=== PATIENT | male | born 1960 | race Caucasian/White ===

== ENCOUNTER 2018-08-29 07:47 | Inpatient (IN) | payer SELFPAY ==
[2018-08-29] MEDS ORDERED: ALBUTEROL SO4 2.5/IPRATROPIUM 0.5 INH SOL 3 ML VIAL.NEB. NEB ONE ×3 (08:10→11:21)
--- NOTE | 2018-08-29 08:15 | PDOC ---
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 Pt states while taking a hot shower with steam this am his SOB worsened causing him to feel as though he could not breath. Pt received steroids and 1 duo neb treatment while in the ambulance with subjective improvement in breathing and reported to be saturating in the low 90s. Pt denies past hx of difficulty breathing, wheezing, O2 requirement or hospitalization. Pt admits to a productive cough over the last month which has worsened over the last 3 days with brownish color sputum. Denies F/C/N/V CP, changes in bowel or bladder habits. Past History - Past Medical History Allergies/Adverse Reactions: Allergies Allergy/AdvReac Type Severity Reaction Status Date / Time No Known Allergies Allergy Verified 08/29/18 08:47 Home Medications: Ambulatory Orders NK [No Known Home Medication] 08/29/18 COPD: No CHF: No - Suicide/Smoking/Psychosocial Hx Smoking History: Never smoked Have you smoked in the past 12 months: No Information on smoking cessation initiated: No Hx Alcohol Use: No Drug/Substance Use Hx: No Review of Systems - Review of Systems Constitutional: No: Chills, Fever Respiratory: Yes: Shortness of Breath, Wheezing, Productive cough Cardiac (ROS): No: Chest Pain, Edema ABD/GI: Yes: Other. No: Constipated, Diarrhea, Nausea, Vomiting : No: Burning, Dysuria Musculoskeletal: No: Back Pain Neurological: No: Headache *Physical Exam - Vital Signs Last Vital Signs Temp Pulse Resp BP Pulse Ox 98.4 F 110 H 16 104/92 99 08/29/18 07:47 08/29/18 07:47 08/29/18 07:47 08/29/18 07:47 08/29/18 07:47 - Physical Exam General Appearance: Yes: Nourished, Appropriately Dressed HEENT: positive: EOMI Respiratory/Chest: positive: Wheezing (expratory ). negative: Lungs Clear, Crackles Cardiovascular: positive: Regular Rhythm, S1, S2, Tachycardia. negative: Edema , JVD, Murmur Vascular Pulses: Dorsalis-Pedis (R): 4+, Doralis-Pedis (L): 4+ Gastrointestinal/Abdominal: positive: Normal Bowel Sounds, Flat, Soft, Tenderness (epigastric). negative: Distended, Guarding, Rebound Extremity: positive: Normal Capillary Refill Integumentary: positive: Normal Color, Dry, Warm Neurologic: positive: Fully Oriented, Alert, Normal Mood/Affect, Normal Response Moderate Sedation - Procedure Monitoring Vital Signs: Procedure Monitoring Vital Signs Temperature 98.4 F 08/29/18 07:47 Pulse Rate 110 H 08/29/18 07:47 Respiratory Rate 16 08/29/18 07:47 Blood Pressure 104/92 08/29/18 07:47 O2 Sat by Pulse Oximetry (%) 99 08/29/18 07:47 ED Treatment Course - LABORATORY CBC & Chemistry Diagram: 08/29/18 08:46 08/29/18 08:46 - RADIOLOGY Radiology Studies Ordered: Category Date Time Status CHEST PA & LAT [RAD] Stat Radiology 08/29/18 08:09 Ordered Medical Decision Making - Medical Decision Making 08/29/18 09:01 58 yo male with 30 pack year smoking hx presents to the ED for 3 days of worsening SOB. No hx of O2 requirement or hospitalizations. Pt does not have PCP and no insurance O2 saturation in the ambulance low 90s, pt requiring 2L 02 to be above 92% received steroids and total of 3 duo nebs, subjective improvement DDX includes but is not limited to: PNA, bronchitis, URI, Labs show WBC 13s K of 3.3 CXR shows coarse lungs with nodule. CT ordered r/o PNA and assess possible nodule further Pt has mild improvement in the ED but continues to have diffuse exp wheezing Spoke with hospitalist who agrees to admit pt *DC/Admit/Observation/Transfer Diagnosis at time of Disposition: Shortness of breath - Discharge Dispostion Condition at time of disposition: Stable Decision to Admit order: Yes - Referrals - Patient Instructions - Post Discharge Activity
[2018-08-29 09:23] LABS: BASO % 0.2 % (0-2.0); HEMATOCRIT 42.4 % (35.4-49); HEMOGLOBIN 15.1 GM/dL (11.7-16.9); LYMPH % 5.8 % (8-40); MCH 29.9 pg (25.7-33.7); MCHC 35.6 g/dl (32.0-35.9); MEAN PLT VOLUME 8.7 fl (7.5-11.1); MONO % 3.3 % (3.8-10.2); NEUT % 90.7 % (42.8-82.8); PLATELET COUNT 133 K/MM3 (134-434); RBC 5.05 M/mm3 (4.00-5.60); RDW 13.7 % (11.9-15.9); WHITE BLOOD COUNT 13.5 K/mm3 (4.0-10.0)
[2018-08-29 09:58] LABS: ALBUMIN 3.9 g/dl (3.4-5.0); ALK PHOS 72 U/L (45-117); ANION GAP 10 MMOL/L (8-16); BILIRUBIN,TOTAL 0.7 mg/dL (0.2-1); BLOOD UREA NITROGEN 15 mg/dL (7-18); CALCIUM 8.7 mg/dL (8.5-10.1); CHLORIDE 100 mmol/L (98-107); CO2 26 mmol/L (21-32); CREATININE 0.8 mg/dL (0.55-1.3); GLUCOSE,RANDOM 117 mg/dL (74-106); POTASSIUM 3.3 mmol/L (3.5-5.1); SGOT/AST 18 U/L (15-37); SGPT/ALT 24 U/L (13-61); SODIUM 135 mmol/L (136-145); TOT PROT 7.6 g/dl (6.4-8.2)
[2018-08-29] MEDS ORDERED: POTASSIUM CHLORIDE TABS 20 MEQ TABLET.ER (FP) PO ONE (12:06)
--- NOTE | 2018-08-29 12:10 | PDOC ---
Attending Attestation - Resident Resident Name: Emile Andrew - ED Attending Attestation I have performed the following: I have examined & evaluated the patient, The case was reviewed & discussed with the resident, I agree w/resident's findings & plan, Exceptions are as noted - HPI HPI: 08/29/18 17:38 The patient is a 58-year-old male with a past medical history notable for untreated Hepatitis C, long time smoker presents to the emergency department via EMS with a cough, shortness of breath and epigastric pain. The patient presents with one month of a productive cough with brownish sputum production, associated with 3 days of worsening shortness of breath and epigastric pain. The patient reports mild relief en route to the ER, where he was given steroids and 1 duoneb. Per EMS, pt was hypoxic to 90%. Denies fever, chills, chest pain, urinary symptoms or changes in bowel habits. Denies focal weakness/numbness, weight loss. Allergies: NKDA Social history: Current smoker. PCP: None reported. - Physicial Exam PE: 08/29/18 12:15 agree with resident exam - Medical Decision Making 08/29/18 10:16 58yo M hx 30yo smoking, HCV presents to the ED with progressive SOB, cough. Pt hypoxic to 90% in the field, tachycardic on arrival to 110 (after duoneb). Exam with diffuse wheezing, prolonged exp phase. Likely undiagnosed COPD (pt non compliant with medical care). Less likely PE as no risk factors, no chest pain and with wheezing, COPD more likely. Unlikely ACS as EKG non ischemic. Pt is uninsured and does not have PMD. 08/29/18 12:36 CXR with possible nodule? CT chest done which shows possible bronchitis vs viral infiltrate, no nodules or masses Pt continues to have wheezing, feels improved but still SOB. Case discussed with admitting team by Dr. Andrew for further mgmt/dispo Pt accepted for admission.
[2018-08-29] MEDS: HEPARIN NA (PORCINE) 5,000 UNITS/ML 1ML VIAL SQ SCH ×2 (14:26→21:10)
--- NOTE | 2018-08-29 15:03 | PN ---
Teaching Attending Note Name of Resident: Carolyn Wilkerson ATTENDING PHYSICIAN STATEMENT I saw and evaluated the patient. I reviewed the resident's note and discussed the case with the resident. I agree with the resident's findings and plan as documented. SUBJECTIVE: Patient is a 58yo male presented wit shortness of breath and was found to have 90% sat. in the field. OBJECTIVE: Vital Signs Temperature 97.8 F 08/29/18 14:15 Pulse Rate 86 08/29/18 14:15 Respiratory Rate 16 08/29/18 14:15 Blood Pressure 130/71 08/29/18 14:15 O2 Sat by Pulse Oximetry (%) 92 L 08/29/18 14:15 Initial Vital Signs Temp Pulse Resp BP Pulse Ox 98.4 F 110 H 16 104/92 99 08/29/18 07:47 08/29/18 07:47 08/29/18 07:47 08/29/18 07:47 08/29/18 07:47 GENERAL: Awake, alert, and fully oriented, in no acute distress. HEAD: Normal with no signs of trauma. EYES: Pupils equal, round and reactive to light, extraocular movements intact, sclera anicteric, conjunctiva clear. No lid lag. EARS, NOSE, THROAT: Ears normal, nares patent, oropharynx clear without exudates. Moist mucous membranes. NECK: Normal range of motion, supple without lymphadenopathy, JVD, or masses. LUNGS: Breath sounds equal, clear to auscultation bilaterally. No wheezes, and no crackles. No accessory muscle use. HEART: Regular rate and rhythm, normal S1 and S2 without murmur, rub or gallop. ABDOMEN: Soft, nontender, not distended, normoactive bowel sounds, no guarding, no rebound, no masses. No hepatomegaly or splenomegaly. MUSCULOSKELETAL: Normal range of motion at all joints. No bony deformities or tenderness. No CVA tenderness. EXTREMITIES: 2+ pulses, warm, well-perfused. No cyanosis. No clubbing. No peripheral edema. NEUROLOGICAL: Cranial nerves II-XII intact. Normal speech. Normal gait. PSYCHIATRIC: Cooperative. Good eye contact. Appropriate mood and affect. SKIN: Warm, dry, normal turgor, no rashes or lesions noted, normal capillary refill. CBCD WBC 13.5 K/mm3 (4.0-10.0) H 08/29/18 08:46 RBC 5.05 M/mm3 (4.00-5.60) 08/29/18 08:46 Hgb 15.1 GM/dL (11.7-16.9) 08/29/18 08:46 Hct 42.4 % (35.4-49) 08/29/18 08:46 MCV 84.0 fl (80-96) 08/29/18 08:46 MCHC 35.6 g/dl (32.0-35.9) 08/29/18 08:46 RDW 13.7 % (11.9-15.9) 08/29/18 08:46 Plt Count 133 K/MM3 (134-434) L 08/29/18 08:46 MPV 8.7 fl (7.5-11.1) 08/29/18 08:46 CMP Sodium 135 mmol/L (136-145) L 08/29/18 08:46 Potassium 3.3 mmol/L (3.5-5.1) L 08/29/18 08:46 Chloride 100 mmol/L (98-107) 08/29/18 08:46 Carbon Dioxide 26 mmol/L (21-32) 08/29/18 08:46 Anion Gap 10 MMOL/L (8-16) 08/29/18 08:46 BUN 15 mg/dL (7-18) 08/29/18 08:46 Creatinine 0.8 mg/dL (0.55-1.3) 08/29/18 08:46 Creat Clearance w eGFR > 60 (>60) 08/29/18 08:46 Random Glucose 117 mg/dL (74-106) H 08/29/18 08:46 Calcium 8.7 mg/dL (8.5-10.1) 08/29/18 08:46 Total Bilirubin 0.7 mg/dL (0.2-1) 08/29/18 08:46 AST 18 U/L (15-37) 08/29/18 08:46 ALT 24 U/L (13-61) 08/29/18 08:46 Alkaline Phosphatase 72 U/L (45-117) 08/29/18 08:46 Total Protein 7.6 g/dl (6.4-8.2) 08/29/18 08:46 Albumin 3.9 g/dl (3.4-5.0) 08/29/18 08:46 CARDIAC ENZYMES Troponin I < 0.02 ng/ml (0.00-0.05) 08/29/18 08:46 Current Medications Generic Name Dose Route Start Last Admin Trade Name Freq PRN Reason Stop Dose Admin Albuterol Sulfate 1 amp 08/29/18 16:00 Ventolin 0.083% Nebulizer Soln - NEB RQID HERMINIO Heparin Sodium (Porcine) 5,000 unit 08/29/18 14:00 08/29/18 14:26 Heparin - SQ Not Given TID [facility] CXR: Coarse lung changes. Questionable nodular density by anterior R first rib margin. CT chest: Suggestive of early acute bronchitis or possibly early viral type infiltration. No segmental infiltrate. No discrete lung nodules identified which would correspond with CXR finding. Doppler study: pending ASSESSMENT AND PLAN: The patient is a 58yo Male with Pmhx of smoking, HCV ( untreated) presents to the ED with progressive SOB, cough. Pt was found to be hypoxic (90%) in the field, tachycardic on arrival to 110 (after duoneb). Patient was admitted for COPD exacerbation since patient is an smoker for 30yrs and still smoking. #Acute Bronchitis with shortness of breath; # Acute COPD exacerbation ; Duonebs QID ,Ventolin QID PRN, Solumedrol 40 mg IVP Q6H, O2 2L NC Echo pending. #Hypokalemia; K 3.3, replete #Chronic tobacco dependency: Nicotine patch #DVT Prophylaxis: Heparin 5000U SQ TID admit to med-surg obs full code
--- NOTE | 2018-08-29 15:11 | HP ---
CHIEF COMPLAINT: shortness of breath PCP: none HISTORY OF PRESENT ILLNESS: 58M w/ pmhx of untreated Hep C presents to the hospital with 3 day hx of worsening sob. He states his became acutely sob today while taking a steam shower this AM. He also reports a 1 month h/o productive cough with brown sputum. He denies any sick contacts. Of note, pt states he smokes 1/2 PPD currently. 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 Admits to headache x4 days after which he took ~12 tablets of Advil with no symptomatic relief after which he started having epigastric pain. Denies dizziness, n/v, urinary/ bowel symptoms, blood in urine/stool. ER course was notable for: (1) WBC 13.5, H/H 15.1/42.4, Na 135, K 3.3 (2) CXR showed coarse lung changes; CT chest showed possible acute bronchitis or early viral infiltrate (3) Recent Travel: Denies PAST MEDICAL HISTORY: untreated Hep C chronic smoker PAST SURGICAL HISTORY: R hand surgery R knee surgery (2/2 complicated skin infection in 2017) Social History: Smokin pack year history Alcohol: social drinker Drugs: Denies Family History: Mother- breast cancer, at 52 Sister- breast cancer, alive Father- liver, lung, brain cancer Allergies No Known Allergies Allergy (Verified 08/29/18 08:47) HOME MEDICATIONS: Home Medications Medication Instructions Recorded NK [No Known Home Medication] 08/29/18 REVIEW OF SYSTEMS CONSTITUTIONAL: Admits to generalized weakness in legs; Denies fever/chills, loss of appetite, weight changes HEENT: Denies throat pain, throat swelling, difficulty swallowing, visual changes CARDIOVASCULAR: Denies chest pain, syncope, palpitations, irregular heart rate, lightheadedness RESPIRATORY: Admits to cough, sob, orthopnea (sleeps with 5 pillows) GASTROINTESTINAL: Denies abdominal pain/distension, n/v, diarrhea, constipation GENITOURINARY: Denies dysuria, frequency, urgency, hesitancy, hematuria MUSCULOSKELETAL: Admits to chronic back pain; Denies joint swelling, neck pain ENDOCRINE: Denies unexplained weight gain, unexplained weight loss NEUROLOGIC: Admits to headache; Denies focal weakness or paresthesias, dizziness , unsteady gait, seizure, mental status changes PHYSICAL EXAMINATION Vital Signs - 24 hr 08/29/18 08/29/18 07:47 14:15 Temperature 98.4 F 97.8 F Pulse Rate 110 H Pulse Rate [ 86 Left Apical] Respiratory 16 16 Rate Blood Pressure 104/92 Blood Pressure 130/71 [Left Arm] O2 Sat by Pulse 99 92 L Oximetry (%) GENERAL: AAOx3. NAD. Comfortable. HEENT: AT/NC. EOMI. VIOLETA. Moist mucus membranes. NECK: Supple. No LAD/JVD. LUNGS: B/L wheezes noted. Symmetric chest rise. No accessory muscle use noted. Speak in complete sentences. HEART: RRR. Normal S1, S2. No murmurs noted. ABDOMEN: Soft, NT/ND. +BS in all 4Qs. No masses or bruits noted. MUSCULOSKELETAL: 5/5 muscle strength in U/L B/L extremities. No peripheral edema noted. NEUROLOGICAL: Cranial nerves II-XII intact. Normal speech. SKIN: Warm, dry, normal turgor, no rashes or lesions noted, normal capillary refill. Laboratory Results - last 24 hr 08/29/18 08/29/18 08:46 08:46 WBC 13.5 H RBC 5.05 Hgb 15.1 Hct 42.4 MCV 84.0 MCH 29.9 MCHC 35.6 RDW 13.7 Plt Count 133 L MPV 8.7 Absolute Neuts (auto) 12.3 H Neutrophils % 90.7 H Lymphocytes % 5.8 L Monocytes % 3.3 L Eosinophils % 0.0 Basophils % 0.2 Nucleated RBC % 0 Sodium 135 L Potassium 3.3 L Chloride 100 Carbon Dioxide 26 Anion Gap 10 BUN 15 Creatinine 0.8 Creat Clearance w eGFR > 60 Random Glucose 117 H Calcium 8.7 Total Bilirubin 0.7 AST 18 ALT 24 Alkaline Phosphatase 72 Troponin I < 0.02 Total Protein 7.6 Albumin 3.9 IMAGING: * CXR: Coarse lung changes. Questionable nodular density by anterior R first rib margin. * CT chest: Suggestive of early acute bronchitis or possibly early viral type infiltration. No segmental infiltrate. No discrete lung nodules identified which would correspond with CXR finding. * Doppler study: pending ASSESSMENT/PLAN: 58M w/ pmhx of untreated Hep C presents to the hospital with 3 day hx of worsening sob admitted for likely COPD, ddx includes acute bronchitis vs viral URI. #Shortness of breath; 2/2 COPD vs. acute bronchitis vs viral URI -Duonebs QID -Ventolin QID PRN -Solumedrol 40 mg IVP Q6H -O2 2L NC -Sputum cx pending #LE edema; r/o CHF, although b/l wheezes heard on lung exam -Echo ordered #Hypokalemia; K 3.3 -KCl 40 meq given once -Cont to monitor K #Chronic tobacco user -Nicotine patch #Prophylaxis -DVT: Heparin 5000U SQ TID #FEN -no IVf needed -recheck lytes in AM -Regular diet dispo -admit to med-surg obs -full code Visit type - Emergency Visit Emergency Visit: Yes ED Registration Date: 08/29/18 Care time: The patient presented to the Emergency Department on the above date and was hospitalized for further evaluation of their emergent condition. - New Patient This patient is new to me today: Yes Date on this admission: 08/29/18 - Critical Care Critical Care patient: No
[2018-08-29 15:37] VITALS: BMI 24.4
[2018-08-29] MEDS ORDERED: ALBUTEROL SO4 0.083% IH SOL 2.5 MG/3 ML VIAL.NEB. NEB SCH (16:00)
[2018-08-29] MEDS: NICOTINE 21 MG/24 HOURS TOPICAL PATCH TD SCH (17:15)
[2018-08-29] MEDS ORDERED: ALBUTEROL SO4 0.083% IH SOL 2.5 MG/3 ML VIAL.NEB. NEB PRN (18:48)
[2018-08-29] MEDS: ALBUTEROL SO4 2.5/IPRATROPIUM 0.5 INH SOL 3 ML VIAL.NEB. NEB SCH (20:04)
[2018-08-29] MEDS: ACETAMINOPHEN 325 MG TABLET (FP) PO PRN (20:49)
[2018-08-29] MEDS: methylPREDNISolone NA SUCC 40 MG/1 ML VIAL IVPUSH SCH (20:49)
[2018-08-30] MEDS: methylPREDNISolone NA SUCC 40 MG/1 ML VIAL IVPUSH SCH ×4 (02:17→20:42)
[2018-08-30] MEDS: HEPARIN NA (PORCINE) 5,000 UNITS/ML 1ML VIAL SQ SCH ×3 (05:14→21:33)
[2018-08-30] MEDS: ALBUTEROL SO4 2.5/IPRATROPIUM 0.5 INH SOL 3 ML VIAL.NEB. NEB SCH ×4 (07:12→21:20)
[2018-08-30 07:41] LABS: BASO % 0.1 % (0-2.0); HEMATOCRIT 45.7 % (35.4-49); HEMOGLOBIN 15.5 GM/dL (11.7-16.9); LYMPH % 4.9 % (8-40); MCH 28.7 pg (25.7-33.7); MEAN CELL VOLUME 84.4 fl (80-96); MEAN PLT VOLUME 8.6 fl (7.5-11.1); MONO % 3.2 % (3.8-10.2); NEUT % 91.8 % (42.8-82.8); PLATELET COUNT 171 K/MM3 (134-434); RBC 5.42 M/mm3 (4.00-5.60); RDW 13.6 % (11.9-15.9); WHITE BLOOD COUNT 14.6 K/mm3 (4.0-10.0)
[2018-08-30 07:44] LABS: ALBUMIN 3.9 g/dl (3.4-5.0); ALK PHOS 74 U/L (45-117); ANION GAP 6 MMOL/L (8-16); BILIRUBIN,TOTAL 0.5 mg/dL (0.2-1); BLOOD UREA NITROGEN 17 mg/dL (7-18); CALCIUM 9.4 mg/dL (8.5-10.1); CHLORIDE 103 mmol/L (98-107); CO2 29 mmol/L (21-32); CREATININE 0.8 mg/dL (0.55-1.3); GLUCOSE,RANDOM 131 mg/dL (74-106); MAGNESIUM 2.6 mg/dL (1.8-2.4); PHOSPHOROUS 2.3 mg/dL (2.5-4.9); POTASSIUM 4.3 mmol/L (3.5-5.1); SGOT/AST 18 U/L (15-37); SGPT/ALT 25 U/L (13-61); SODIUM 138 mmol/L (136-145); TOT PROT 7.7 g/dl (6.4-8.2)
[2018-08-30] MEDS: NICOTINE 21 MG/24 HOURS TOPICAL PATCH TD SCH (09:29)
[2018-08-30] MEDS: ACETAMINOPHEN 325 MG TABLET (FP) PO PRN (09:29)
[2018-08-30 10:41] LABS: ACANTHOCYTES 0; ANISOCYTOSIS 0; HELMET CELLS 0; HOWELL-JOLLY BODIES 0; MACROCYTOSIS 0; OVALOCYTE 0; PLATELET ESTIMATE NORMAL; ROULEAU 0; SICKELED CELLS 0; TARGET CELLS 0; TEAR DROP CELLS 0; TOXIC GRANULATION 0
--- NOTE | 2018-08-30 10:47 | PN ---
Physical Exam: SUBJECTIVE: Patient seen and examined at bedside. Pt complaints that he could not sleep last night. OBJECTIVE: Vital Signs Period Temp Pulse Resp BP Sys/Jernigan Pulse Ox Last 24 Hr 97.6 F-97.9 F 86-99 16-20 130-157/71-92 92-97 GENERAL: AAOx3. NAD. Comfortable. HEENT: AT/NC. EOMI. VIOLETA. Moist mucus membranes. NECK: Supple. No LAD/JVD. LUNGS: Diffuse expiratory wheezes b/l. Symmetric chest rise. No accessory muscle use noted. Speaks in complete sentences. HEART: RRR. Normal S1, S2. No murmurs noted. ABDOMEN: Soft, NT/ND. +BS in all 4Qs. No masses or bruits noted. MUSCULOSKELETAL: 5/5 muscle strength in U/L B/L extremities. 2+ peripheral edema noted b/l LE. NEUROLOGICAL: Cranial nerves II-XII intact. Normal speech. SKIN: Warm, dry, normal turgor, no rashes or lesions noted, normal capillary refill. CBCD WBC 14.6 K/mm3 (4.0-10.0) H 08/30/18 06:10 RBC 5.42 M/mm3 (4.00-5.60) 08/30/18 06:10 Hgb 15.5 GM/dL (11.7-16.9) 08/30/18 06:10 Hct 45.7 % (35.4-49) 08/30/18 06:10 MCV 84.4 fl (80-96) 08/30/18 06:10 MCHC 34.0 g/dl (32.0-35.9) 08/30/18 06:10 RDW 13.6 % (11.9-15.9) 08/30/18 06:10 Plt Count 171 K/MM3 (134-434) D 08/30/18 06:10 MPV 8.6 fl (7.5-11.1) 08/30/18 06:10 CMP Sodium 138 mmol/L (136-145) 08/30/18 06:10 Potassium 4.3 mmol/L (3.5-5.1) 08/30/18 06:10 Chloride 103 mmol/L (98-107) 08/30/18 06:10 Carbon Dioxide 29 mmol/L (21-32) 08/30/18 06:10 Anion Gap 6 MMOL/L (8-16) L 08/30/18 06:10 BUN 17 mg/dL (7-18) 08/30/18 06:10 Creatinine 0.8 mg/dL (0.55-1.3) 08/30/18 06:10 Creat Clearance w eGFR > 60 (>60) 08/30/18 06:10 Calcium 9.4 mg/dL (8.5-10.1) 08/30/18 06:10 Total Bilirubin 0.5 mg/dL (0.2-1) 08/30/18 06:10 AST 18 U/L (15-37) 08/30/18 06:10 ALT 25 U/L (13-61) 08/30/18 06:10 Alkaline Phosphatase 74 U/L (45-117) 08/30/18 06:10 Total Protein 7.7 g/dl (6.4-8.2) 08/30/18 06:10 Albumin 3.9 g/dl (3.4-5.0) 08/30/18 06:10 Active Medications Acetaminophen (Tylenol -) 650 mg PO Q6H PRN PRN Reason: HEADACHE Last Admin: 08/30/18 09:29 Dose: 650 mg Albuterol Sulfate (Ventolin 0.083% Nebulizer Soln -) 1 amp NEB Q6H PRN PRN Reason: SHORTNESS OF BREATH Albuterol/Ipratropium (Duoneb -) 1 amp NEB RQID [facility] Last Admin: 08/30/18 07:12 Dose: 1 amp Heparin Sodium (Porcine) (Heparin -) 5,000 unit SQ TID [facility] Last Admin: 08/30/18 05:14 Dose: Not Given Methylprednisolone Sodium Succinate (Solu-Medrol -) 40 mg IVPUSH Q6H-IV [facility] Last Admin: 08/30/18 09:29 Dose: 40 mg Nicotine (Nicoderm Patch -) 21 mg TD DAILY [facility] Last Admin: 08/30/18 09:29 Dose: 21 mg CONSULT: Detox- Dr. Penn IMAGING: * CXR: Coarse lung changes. Questionable nodular density by anterior R first rib margin. * CT chest: Suggestive of early acute bronchitis or possibly early viral type infiltration. No segmental infiltrate. No discrete lung nodules identified which would correspond with CXR finding. * Doppler study: No evidence of DVT * ECHO (08/30/18): LV size, thickness, fxn are normal. LVEF is normal. LV wall motion is normal. There was insufficient TR to calculate RV systolic pressure. Aortic valve is not well visualized. Mild aortic valve thickening. Mild aortic sclerosis. Trace to mild MR. 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 #Shortness of breath; 2/2 COPD vs. acute bronchitis vs viral URI -Duonebs QID -Ventolin QID PRN -Solumedrol 40 mg IVP Q6H -O2 2L NC -Sputum cx pending -Pulm consult ordered; await recs #Abdominal pain; 2/2 recent NSAID use (ingested 12 pills just prior to admission ) vs. GERD vs. inflammation due to acute bronchitis/viral type infiltration found on CT chest -Protonix 40 mg IVP BID -Bentyl 10 mg PO QID x1 day -H/H stable at 15.5/45.7 #Hx of heroine abuse; currently using Suboxone. -Pt just revealed extensive history of heroine abuse, now currently taking Suboxone for the past year. Obtains Suboxone from a friend, non-prescribed. Today, per nurse and family member, pt seen agitated with intense epigastric pain, +vomiting episodes x2, nausea, hallucination. Detox specialist consulted with recommendation to obtain Utox with buprenorphine to test for opioids. If neg, detox with Suboxone per specialist. -Drug cessation counseling. -F/u Utox -Detox MD consult ordered; await further recs #LE edema; r/o CHF, although b/l wheezes heard on lung exam. LE edema 2+ b/l up to knee. -Echo (08/30/18) noted above. #Hypokalemia; Improved, K 3.3 > now 4.3. -Cont to monitor K, replete PRN #Chronic tobacco user -Nicotine patch -Smoking cessation counseling #Prophylaxis -DVT: Heparin 5000U SQ TID #FEN -D5-NS @ 175 -recheck lytes in AM -NPO except for meds/ice chips dispo -cont to monitor on inpt med/surg -full code Visit type - Emergency Visit Emergency Visit: Yes ED Registration Date: 08/30/18 Care time: The patient presented to the Emergency Department on the above date and was hospitalized for further evaluation of their emergent condition. - New Patient This patient is new to me today: No - Critical Care Critical Care patient: No
[2018-08-30] MEDS ORDERED: NAPH,MB-DB/K PH,MBDB POWDER PACKET PO ONE (10:48)
[2018-08-30] MEDS ORDERED: MELATONIN 5 MG TABLETS PO PRN (10:51)
--- NOTE | 2018-08-30 13:02 | ECHO ---
Version: 1 Name: FREDA HILL Exam: Adult Echocardiogram Study Date: 08/30/2018, 10:12 AM Age: 58 Years MMode/2D Measurements & Calculations IVSd: 1.00 cm LVIDs: 2.5 cm LVIDd: 3.8 cm LVPWd: 0.97 cm LVOT diam: 1.96 cm Ao root diam: 2.8 cm LA dimension: 3.0 cm Doppler Measurements & Calculations Med Peak E' Sundar: 5.8 cm/sec Procedure A two-dimensional transthoracic echocardiogram with color flow and Doppler was performed. Left Ventricle The left ventricular size, thickness and function are normal. The left ventricular ejection fraction is normal. The left ventricular wall motion is normal. Right Ventricle The right ventricle is not well visualized. Atria Normal left and right atrial size and function. Mitral Valve There is mild mitral valve thickening. There is no mitral valve stenosis. There is trace to mild lisbeth ral regurgitation. Tricuspid Valve There is mild tricuspid valve thickening. There is no tricuspid stenosis. There was insufficient TR detected to calculate RV systolic pressure. Aortic Valve The aortic valve is not well visualized. There is mild aortic valve thickening. There is mild aortic sclerosis.;. No hemodynamically significant valvular aortic stenosis. No aortic regurgitation is pre sent. Pulmonic Valve The pulmonic valve is not well visualized. Great Vessels The aortic root is normal size. Pericardium/Pleura There is no pericardial effusion. Summary Statements The left ventricular size, thickness and function are normal The left ventricular ejection fraction is normal. The left ventricular wall motion is normal. There was insufficient TR detected to calculate RV systolic pressure. The aortic valve is not well visualized. There is mild aortic valve thickening. There is mild aortic sclerosis.; There is trace to mild mitral regurgitation. MD Saji Rose 08/30/2018, 1:02 PM Ordering Physician: MAL ANN Performed By: Gwendolyn Conte
[2018-08-30] MEDS: PANTOPRAZOLE 40 MG TABLET (FP) PO SCH ×2 (13:52→13:54)
[2018-08-30] MEDS ORDERED: PANTOPRAZOLE SODIUM 40 MG VIAL IVPUSH SCH (14:00)
[2018-08-30] MEDS ORDERED: DEXTROSE 5%-NORMAL SALINE 1,000 ML IV SCH ×2 (14:15→15:13)
[2018-08-30] MEDS ORDERED: PROCHLORPERAZINE INJECTION 10 MG/2 ML VIAL IVPB ONE (14:45)
[2018-08-30] MEDS ORDERED: PANTOPRAZOLE SODIUM 40 MG VIAL IVPUSH ONE (16:31)
[2018-08-30] MEDS ORDERED: DICYCLOMINE HCL 10 MG CAPSULE PO ONE (16:34)
[2018-08-30] MEDS ORDERED: DICYCLOMINE HCL 10 MG CAPSULE PO PRN (16:42)
--- NOTE | 2018-08-30 16:44 | EKG ---
Test Reason : Blood Pressure : / mmHG Vent. Rate : 097 BPM Atrial Rate : 097 BPM P-R Int : 180 ms QRS Dur : 076 ms QT Int : 356 ms P-R-T Axes : 075 -31 068 degrees QTc Int : 452 ms NORMAL SINUS RHYTHM LEFT AXIS DEVIATION INFERIOR INFARCT , AGE UNDETERMINED ABNORMAL ECG WHEN COMPARED WITH ECG OF 05-JUN-2012 08:26, INFERIOR INFARCT IS NOW PRESENT NONSPECIFIC T WAVE ABNORMALITY NO LONGER EVIDENT IN INFERIOR LEADS Confirmed by HENRI SLOAN MD ([id number]) on 08/30/2018 4:44:35 PM Referred By: MAL NAN Confirmed By:HENRI SLOAN MD
--- NOTE | 2018-08-30 16:54 | EKG ---
Test Reason : Blood Pressure : / mmHG Vent. Rate : 107 BPM Atrial Rate : 107 BPM P-R Int : 186 ms QRS Dur : 080 ms QT Int : 336 ms P-R-T Axes : 081 -40 073 degrees QTc Int : 448 ms SINUS TACHYCARDIA WITH FUSION COMPLEXES LEFT AXIS DEVIATION INFERIOR INFARCT , AGE UNDETERMINED ABNORMAL ECG NO PREVIOUS ECGS AVAILABLE Confirmed by HENRI SLOAN MD ([id number]) on 08/30/2018 4:54:15 PM Referred By: Confirmed By:HENRI SLOAN MD
--- NOTE | 2018-08-30 17:35 | PN ---
Teaching Attending Note Name of Resident: Carolyn Wilkerson ATTENDING PHYSICIAN STATEMENT I saw and evaluated the patient. I reviewed the resident's note and discussed the case with the resident. I agree with the resident's findings and plan as documented. SUBJECTIVE: Patient is c/o having mid-epigastric pain. No nausea or vomiting. OBJECTIVE: Vital Signs Temperature 98.4 F 08/30/18 14:50 Pulse Rate 98 H 08/30/18 14:50 Respiratory Rate 21 H 08/30/18 15:00 Blood Pressure 161/100 08/30/18 14:50 O2 Sat by Pulse Oximetry (%) 96 08/30/18 15:00 GENERAL: AAOx3. NAD. Comfortable. HEENT: AT/NC. EOMI. VIOLETA. Moist mucus membranes. NECK: Supple. No LAD/JVD. LUNGS: B/L wheezes noted. otherwise CTABL. HEART: RRR. Normal S1, S2. No murmurs noted. ABDOMEN: Soft, NT/ND. +BS , No masses or bruits noted. MUSCULOSKELETAL: 5/5 muscle strength in U/L B/L extremities. No peripheral edema noted. NEUROLOGICAL: Cranial nerves II-XII intact. Normal speech. SKIN: Warm, dry, normal turgor, no rashes or lesions noted, normal capillary refill. CBCD WBC 14.6 K/mm3 (4.0-10.0) H 08/30/18 06:10 RBC 5.42 M/mm3 (4.00-5.60) 08/30/18 06:10 Hgb 15.5 GM/dL (11.7-16.9) 08/30/18 06:10 Hct 45.7 % (35.4-49) 08/30/18 06:10 MCV 84.4 fl (80-96) 08/30/18 06:10 MCHC 34.0 g/dl (32.0-35.9) 08/30/18 06:10 RDW 13.6 % (11.9-15.9) 08/30/18 06:10 Plt Count 171 K/MM3 (134-434) D 08/30/18 06:10 MPV 8.6 fl (7.5-11.1) 08/30/18 06:10 CMP Sodium 138 mmol/L (136-145) 08/30/18 06:10 Potassium 4.3 mmol/L (3.5-5.1) 08/30/18 06:10 Chloride 103 mmol/L (98-107) 08/30/18 06:10 Carbon Dioxide 29 mmol/L (21-32) 08/30/18 06:10 Anion Gap 6 MMOL/L (8-16) L 08/30/18 06:10 BUN 17 mg/dL (7-18) 08/30/18 06:10 Creatinine 0.8 mg/dL (0.55-1.3) 08/30/18 06:10 Creat Clearance w eGFR > 60 (>60) 08/30/18 06:10 Random Glucose 131 mg/dL (74-106) H 08/30/18 06:10 Calcium 9.4 mg/dL (8.5-10.1) 08/30/18 06:10 Total Bilirubin 0.5 mg/dL (0.2-1) 08/30/18 06:10 AST 18 U/L (15-37) 08/30/18 06:10 ALT 25 U/L (13-61) 08/30/18 06:10 Alkaline Phosphatase 74 U/L (45-117) 08/30/18 06:10 Total Protein 7.7 g/dl (6.4-8.2) 08/30/18 06:10 Albumin 3.9 g/dl (3.4-5.0) 08/30/18 06:10 CARDIAC ENZYMES Troponin I < 0.02 ng/ml (0.00-0.05) 08/29/18 08:46 Current Medications Generic Name Dose Route Start Last Admin Trade Name Alycia PRN Reason Stop Dose Admin Acetaminophen 650 mg 08/29/18 20:32 08/30/18 09:29 Tylenol - PO 650 mg Q6H PRN Administration HEADACHE Albuterol Sulfate 1 amp 08/29/18 18:48 Ventolin 0.083% Nebulizer Soln - NEB Q6H PRN SHORTNESS OF BREATH Albuterol/Ipratropium 1 amp 08/29/18 20:00 08/30/18 17:00 Duoneb - NEB 1 amp RQID HERMINIO Administration Dicyclomine HCl 10 mg 08/30/18 16:42 Bentyl - PO QID PRN MUSCLE SPASMS Heparin Sodium (Porcine) 5,000 unit 08/29/18 14:00 08/30/18 13:51 Heparin - SQ Not Given TID HERMINIO Dextrose/Sodium Chloride 1,000 mls @ 100 mls/hr 08/30/18 15:13 08/30/18 15:57 D5-Ns - IV 100 mls/hr ASDIR HERMINIO Administration Melatonin 5 mg 08/30/18 10:51 Melatonin PO HS PRN INSOMNIA Methylprednisolone Sodium Succinate 40 mg 08/29/18 19:00 08/30/18 14:27 Solu-Medrol - IVPUSH 40 mg Q6H-IV HERMINIO Administration Nicotine 21 mg 08/29/18 16:30 08/30/18 09:29 Nicoderm Patch - TD 21 mg DAILY HERMINIO Administration Pantoprazole Sodium 40 mg 08/30/18 22:00 Protonix Iv IVPUSH 09/02/18 10:01 BID [facility] Home Medications Medication Instructions Recorded Bethanechol Chloride [Bethanechol 50 mg PO QID #0 tablet 06/07/12 Chloride -] Cyclobenzaprine HCl [Flexeril -] 10 mg PO TID #30 tablet 06/07/12 Gabapentin [Neurontin -] 300 mg PO TID #0 capsule 06/07/12 Oxycodone HCl/Acetaminophen 1 - 2 tab PO Q6H #30 tablet 06/07/12 [Percocet 5-325 mg Tablet] Tamsulosin HCl 0.4 mg PO DAILY #0 cap.er.24h 06/07/12 NK [No Known Home Medication] 08/29/18 ASSESSMENT AND PLAN: The patient is a 58yo Male with Pmhx of smoking, HCV ( untreated) presents to the ED with progressive SOB, cough. Pt was found to be hypoxic (90%) in the field, tachycardic on arrival to 110 (after duoneb). Patient was admitted for COPD exacerbation since patient is an smoker for 30yrs and still smoking. #Acute shortness of breath; most likely due to COPD exacerbation. continue current therapy # Acute COPD exacerbation ; Duonebs QID ,Ventolin QID PRN, Solumedrol 40 mg IVP Q6H, O2 2L NC, Echo: Mild TR, ,mild , mild MR. 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 detox consult appreciated. # Midepigastric pain most likely withdrawing, yoni give hime one dose of bentyl IM and place a prn order. #DVT Prophylaxis: Heparin 5000U SQ TID admit to med-surg obs full code
[2018-08-30 18:11] LABS: COCAINE, UR NEGATIVE ng/ml (CUTOFF=300); METHADONE, UR NEGATIVE ng/ml (CUTOFF=300); PHENCYCLIDINE,URINE NEGATIVE ng/ml (CUTOFF=25); URINE AMPHETAMINES NEGATIVE ng/ml (CUTOFF=500); URINE BARBITURATES NEGATIVE ng/ml (CUTOFF=200); URINE BENZODIAZEPINES NEGATIVE ng/ml (CUTOFF=200)
[2018-08-30 18:37] LABS: OPIATES, URI POSITIVE ng/ml (CUTOFF=300)
[2018-08-30] MEDS ORDERED: LORazepam 2 MG/ML SDV VIAL IVPUSH ONE (20:18)
[2018-08-30] MEDS: PANTOPRAZOLE SODIUM 40 MG VIAL IVPUSH SCH (21:33)
[2018-08-31] MEDS: methylPREDNISolone NA SUCC 40 MG/1 ML VIAL IVPUSH SCH ×2 (02:06→09:59)
[2018-08-31] MEDS: HEPARIN NA (PORCINE) 5,000 UNITS/ML 1ML VIAL SQ SCH ×3 (05:06→22:09)
[2018-08-31 07:28] LABS: HEMATOCRIT 42.7 % (35.4-49); HEMOGLOBIN 15.3 GM/dL (11.7-16.9); MCH 30.1 pg (25.7-33.7); MCHC 35.9 g/dl (32.0-35.9); MEAN CELL VOLUME 83.8 fl (80-96); MEAN PLT VOLUME 8.4 fl (7.5-11.1); PLATELET COUNT 228 K/MM3 (134-434); RBC 5.09 M/mm3 (4.00-5.60); RDW 13.6 % (11.9-15.9); WHITE BLOOD COUNT 15.7 K/mm3 (4.0-10.0)
[2018-08-31 07:48] LABS: ANION GAP 7 MMOL/L (8-16); BLOOD UREA NITROGEN 19 mg/dL (7-18); CALCIUM 8.8 mg/dL (8.5-10.1); CHLORIDE 99 mmol/L (98-107); CO2 29 mmol/L (21-32); CREATININE 0.8 mg/dL (0.55-1.3); GLUCOSE,RANDOM 140 mg/dL (74-106); POTASSIUM 3.7 mmol/L (3.5-5.1); SODIUM 136 mmol/L (136-145)
[2018-08-31] MEDS: ALBUTEROL SO4 2.5/IPRATROPIUM 0.5 INH SOL 3 ML VIAL.NEB. NEB SCH ×3 (08:06→20:55)
[2018-08-31] MEDS ORDERED: DEXTROSE 5%-NORMAL SALINE 1,000 ML IV SCH (09:25)
[2018-08-31] MEDS: NICOTINE 21 MG/24 HOURS TOPICAL PATCH TD SCH (10:08)
[2018-08-31] MEDS: PANTOPRAZOLE SODIUM 40 MG VIAL IVPUSH SCH ×2 (10:08→22:08)
[2018-08-31] MEDS ORDERED: methylPREDNISolone NA SUCC 40 MG/1 ML VIAL IVPUSH SCH (11:15)
[2018-08-31] MEDS ORDERED: LORazepam 2 MG/ML SDV VIAL IM PRN (11:16)
[2018-08-31 12:27] LABS: MAGNESIUM 2.2 mg/dL (1.8-2.4); PHOSPHOROUS 3.6 mg/dL (2.5-4.9)
--- NOTE | 2018-08-31 13:32 | PN ---
Physical Exam: SUBJECTIVE: Patient seen and examined OBJECTIVE: Vital Signs Temperature 98.2 F 08/31/18 15:09 Pulse Rate 76 08/31/18 15:09 Respiratory Rate 24 H 08/31/18 15:09 Blood Pressure 156/94 08/31/18 15:09 O2 Sat by Pulse Oximetry (%) 93 L 08/31/18 12:27 GENERAL: AAOx3. NAD. Comfortable. HEENT: AT/NC. EOMI. VIOLETA. Moist mucus membranes. NECK: Supple. No LAD/JVD. LUNGS: Diffuse expiratory wheezes b/l. Symmetric chest rise. No accessory muscle use noted. Speaks in complete sentences. HEART: RRR. Normal S1, S2. No murmurs noted. ABDOMEN: Soft, NT/ND. +BS in all 4Qs. No masses or bruits noted. MUSCULOSKELETAL: 5/5 muscle strength in U/L B/L extremities. 2+ peripheral edema noted b/l LE. NEUROLOGICAL: Cranial nerves II-XII intact. Normal speech. SKIN: Warm, dry, normal turgor, no rashes or lesions noted, normal capillary refill. CBCD WBC 15.7 K/mm3 (4.0-10.0) H 08/31/18 06:30 RBC 5.09 M/mm3 (4.00-5.60) 08/31/18 06:30 Hgb 15.3 GM/dL (11.7-16.9) 08/31/18 06:30 Hct 42.7 % (35.4-49) 08/31/18 06:30 MCV 83.8 fl (80-96) 08/31/18 06:30 MCHC 35.9 g/dl (32.0-35.9) 08/31/18 06:30 RDW 13.6 % (11.9-15.9) 08/31/18 06:30 Plt Count 228 K/MM3 (134-434) D 08/31/18 06:30 MPV 8.4 fl (7.5-11.1) 08/31/18 06:30 CMP Sodium 136 mmol/L (136-145) 08/31/18 06:30 Potassium 3.7 mmol/L (3.5-5.1) 08/31/18 06:30 Chloride 99 mmol/L (98-107) 08/31/18 06:30 Carbon Dioxide 29 mmol/L (21-32) 08/31/18 06:30 Anion Gap 7 MMOL/L (8-16) L 08/31/18 06:30 BUN 19 mg/dL (7-18) H 08/31/18 06:30 Creatinine 0.8 mg/dL (0.55-1.3) 08/31/18 06:30 Creat Clearance w eGFR > 60 (>60) 08/31/18 06:30 Calcium 8.8 mg/dL (8.5-10.1) 08/31/18 06:30 Total Bilirubin 0.5 mg/dL (0.2-1) 08/30/18 06:10 AST 18 U/L (15-37) 08/30/18 06:10 ALT 25 U/L (13-61) 08/30/18 06:10 Alkaline Phosphatase 74 U/L (45-117) 08/30/18 06:10 Total Protein 7.7 g/dl (6.4-8.2) 08/30/18 06:10 Albumin 3.9 g/dl (3.4-5.0) 08/30/18 06:10 Active Medications Acetaminophen (Tylenol -) 650 mg PO Q6H PRN PRN Reason: HEADACHE Last Admin: 08/30/18 09:29 Dose: 650 mg Albuterol Sulfate (Ventolin 0.083% Nebulizer Soln -) 1 amp NEB Q6H PRN PRN Reason: SHORTNESS OF BREATH Albuterol/Ipratropium (Duoneb -) 1 amp NEB RQID [facility] Last Admin: 08/31/18 12:12 Dose: 1 amp Buprenorphine/Naloxone (Suboxone 8mg/2mg Sl Film -) 1 each SL DAILY [facility] Last Admin: 08/31/18 15:10 Dose: 1 each Clonidine (Catapres -) 0.2 mg PO BID [facility] Dicyclomine HCl (Bentyl -) 10 mg PO QID PRN PRN Reason: MUSCLE SPASMS Heparin Sodium (Porcine) (Heparin -) 5,000 unit SQ TID [facility] Last Admin: 08/31/18 15:11 Dose: Not Given Lorazepam (Ativan Injection -) 1 mg IM BID PRN PRN Reason: AGITATION Melatonin (Melatonin) 5 mg PO HS PRN PRN Reason: INSOMNIA Last Admin: 08/30/18 21:33 Dose: 5 mg Nicotine (Nicoderm Patch -) 21 mg TD DAILY [facility] Last Admin: 08/31/18 10:08 Dose: Not Given Pantoprazole Sodium (Protonix Iv) 40 mg IVPUSH BID [facility] Stop: 09/02/18 10:01 Last Admin: 08/31/18 10:08 Dose: 40 mg Prednisone (Deltasone -) 40 mg PO BID [facility] CONSULT: Detox- Dr. Penn IMAGING: * CXR: Coarse lung changes. Questionable nodular density by anterior R first rib margin. * CT chest: Suggestive of early acute bronchitis or possibly early viral type infiltration. No segmental infiltrate. No discrete lung nodules identified which would correspond with CXR finding. * Doppler study: No evidence of DVT * ECHO (08/30/18): LV size, thickness, fxn are normal. LVEF is normal. LV wall motion is normal. There was insufficient TR to calculate RV systolic pressure. Aortic valve is not well visualized. Mild aortic valve thickening. Mild aortic sclerosis. Trace to mild MR. 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 #Shortness of breath; 2/2 COPD vs. acute bronchitis vs viral URI -Duonebs QID -Ventolin QID PRN -Switch Solumedrol 40 mg IVP Q6H to Prednisone 40 mg PO BID -O2 2L NC -Sputum cx pending -Pulm consult; PFTs once stable as outpatient -pre and post ordered #Abdominal pain; 2/2 recent NSAID use (ingested 12 pills just prior to admission ) vs. GERD vs. inflammation due to acute bronchitis/viral type infiltration found on CT chest -Protonix 40 mg IVP BID -Bentyl 10 mg PO QID x1 day -H/H stable at 15.5/45.7 #Hx of heroine abuse; currently using Suboxone. -Pt just revealed extensive history of heroine abuse, now currently taking Suboxone for the past year. Obtains Suboxone from a friend, non-prescribed. Today, per nurse and family member, pt seen agitated with intense epigastric pain, +vomiting episodes x2, nausea, hallucination. Detox specialist consulted with recommendation to obtain Utox with buprenorphine to test for opioids. If neg, detox with Suboxone per specialist. -Drug cessation counseling. -Utox +opiates -Ativan 1 mg IVP BID PRN for agitation -Detox MD, Suboxone 8mg daily started; will need intensive dc planning with IOP drug rehab -Clonidine 0.2 mg PO BID #LE edema; r/o CHF, although b/l wheezes heard on lung exam. LE edema 2+ b/l up to knee. -Echo (08/30/18) noted above. #Hypokalemia; Improved, K 3.3 > now 4.3. -Cont to monitor K, replete PRN #Chronic tobacco user -Nicotine patch -Smoking cessation counseling #Prophylaxis -DVT: Heparin 5000U SQ TID #FEN -no IVf -recheck lytes in AM -NPO except for meds/ice chips dispo -cont to monitor on inpt med/surg -full code Visit type - Emergency Visit Emergency Visit: Yes ED Registration Date: 08/30/18 Care time: The patient presented to the Emergency Department on the above date and was hospitalized for further evaluation of their emergent condition. - New Patient This patient is new to me today: No - Critical Care Critical Care patient: No
--- NOTE | 2018-08-31 14:06 | PN ---
[facility] COWS - Scale Resting Pulse: 1= NC 81-100 Sweatin=Flushed/Facial Moisture Restless Observation: 1= Difficult to Sit Still Pupil Size: 5= Only Rim of Iris Seen Bone or Joint Aches: 1= Mild Discomfort Runny Nose/ Eye Tearin= Runny Nose/Eyes GI Upset > 30mins: 3= Vomiting/Diarrhea Tremor Observation of Outstretched Hands: 2= Slight Tremor Visible Yawning Observation: 1= 1-2x During Session Anxiety or Irritability: 2=Irritable/Anxious Goose Flesh Skin: 0=Smooth Skin COWS Score: 20 [facility] Progress Note (SOAP) Subjective: Addiction Consult Asked to see patient for active opioid withdrawal This is a 58 year old male with a history of heavy tobacco use, fpc opioid use disorder admitted for SOB/"almost passed out." About a day into his hospitalization he went into opioid withdrawal (he had not disclosed his use to anyone) with N/V, anxiety, disorientation, sweating, agitation, anxiety. His COWS is currently 20. Substance Use History Heroin: first use at 14 years old, was IV user now [place] only, last use of heroin this past Tuesday/Tuesday. He has a classic chronic, relapsing and remitting course of substance misuse. The past year he has been buying Suboxone from a friend and using anywhere from 8-24mg a day.With Suboxone his life has gotten much "better." He got a new job, improved relationships, etc. He decided he needed to detox himself off the Suboxone and weaned himself down to 2mg and then off about 2 weeks ago. He is also concerned about drug testing in his new job at [employer] [employer]. He denies use of other substances except the tobacco mentioned above. Treatment History He has an extensive treatment history including greater than 10 inpatient detox , 30d rehab also 10-15 times, [facility] rehab about 5 times. 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 Psych hist: denies any mental health issues Social History: lives with his SO, Maria A, who he has been with since 1989. They live in an apartment. 3 kids. two of his children have DELPHINE. 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 Med hist: COPD? 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 OUD: Re-start Suboxone 8mg a day. Tobacco Use Disorder: Smoking cessation including patch plus short acting gum/ inhaler. CHantix? He needs to have intensive discharge planning including referral to a Suboxone program that is not an [facility] (b/c he works) or a private practitioner who accepts insurance. He is also asking for a referral to see a "therapist". 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 Will follow and reach out to the primary medical team.
[2018-08-31] MEDS: BUPRENORPHINE/NALOXONE 8 MG/2 MG FILM PACKET SL SCH (15:10)
--- NOTE | 2018-08-31 15:36 | CON.PULM ---
Consult Consult Specialty:: PULM/CCM Referred by:: Hospitalist Reason for Consultation:: SOB - History of Present Illness Chief Complaint: SOB History of Present Illness: 58 M, 1/2 to 1 PPD smoker. History of untreated Hep C. Admitted via the ER due to 3 days of worsening SOB, BROOKS, and congested cough. The SOB apparently significantly worsened after he took a steam shower. No travel history or sick contacts. No hemoptysis or night sweats. No outpatient ABX or steroids. Took OTC counter meds for URI symptoms. - History Source History Provided By: Patient Limitations to Obtaining History: No Limitations - Past Medical History Pulmonary: Yes: Bronchitis. No: Previously Intubated, Pulmonary Embolus, Sleep Apnea - Alcohol/Substance Use Hx Alcohol Use: Yes (socially) - Smoking History Smoking history: Current every day smoker Have you smoked in the past 12 months: Yes Aproximately how many cigarettes per day: 20 Home Medications - Allergies Allergies/Adverse Reactions: Allergies Allergy/AdvReac Type Severity Reaction Status Date / Time No Known Allergies Allergy Verified 06/05/12 07:16 - Home Medications Home Medications: Ambulatory Orders Bethanechol Chloride [Bethanechol Chloride -] 50 mg PO QID #0 tablet 06/07/12 Cyclobenzaprine HCl [Flexeril -] 10 mg PO TID #30 tablet 06/07/12 Gabapentin [Neurontin -] 300 mg PO TID #0 capsule 06/07/12 Oxycodone HCl/Acetaminophen [Percocet 5-325 mg Tablet] 1 - 2 tab PO Q6H #30 tablet 06/07/12 Tamsulosin HCl 0.4 mg PO DAILY #0 cap.er.24h 06/07/12 NK [No Known Home Medication] 08/29/18 Review of Systems - Review of Systems Constitutional: reports: Lethargy, Malaise. denies: Chills, Fever, Night Sweats , Unintentional Wgt. Loss Eyes: reports: No Symptoms HENT: reports: No Symptoms Neck: reports: No Symptoms Cardiovascular: reports: Shortness of Breath. denies: Chest Pain, Edema, Palpitations Respiratory: reports: Cough, SOB, SOB on Exertion, Wheezing. denies: Hemoptysis , Snoring Gastrointestinal: reports: No Symptoms Genitourinary: reports: No Symptoms Breasts: reports: No Symptoms Reported Musculoskeletal: reports: No Symptoms Integumentary: reports: No Symptoms Neurological: reports: No Symptoms Endocrine: reports: No Symptoms Hematology/Lymphatic: reports: No Symptoms Psychiatric: reports: No Symptoms Physical Exam Vital Sings: Vital Signs Temperature 98.2 F 08/31/18 15:09 Pulse Rate 76 08/31/18 15:09 Respiratory Rate 24 H 08/31/18 15:09 Blood Pressure 156/94 08/31/18 15:09 O2 Sat by Pulse Oximetry (%) 93 L 08/31/18 12:27 Constitutional: Yes: No Distress, Thin Eyes: Yes: Conjunctiva Clear, EOM Intact HENT: Yes: Atraumatic, Normocephalic Neck: Yes: Supple, Trachea Midline Cardiovascular: Yes: Regular Rate and Rhythm Respiratory: Yes: Cough, Diminished, On Nasal O2, Rhonchi, Tachypnea, Wheezes. No: Rales, Stridor ...Inspection: Yes: WNL ...Clubbing: No Gastrointestinal: Yes: Normal Bowel Sounds, Soft Musculoskeletal: Yes: WNL Extremities: Yes: WNL Edema: No Peripheral Pulses WNL: Yes Integumentary: Yes: WNL Neurological: Yes: WNL, Alert, Oriented Labs: CBC, BMP 08/31/18 06:30 08/31/18 06:30 Imaging - Results Chest X-ray: Report Reviewed, Image Reviewed Cat Scan: Report Reviewed, Image Reviewed Problem List - Problems (1) Acute exacerbation of chronic obstructive airways disease Code(s): J44.1 - CHRONIC OBSTRUCTIVE PULMONARY DISEASE W (ACUTE) EXACERBATION (2) COPD (chronic obstructive pulmonary disease) Code(s): J44.9 - CHRONIC OBSTRUCTIVE PULMONARY DISEASE, UNSPECIFIED (3) Smoker Code(s): F17.200 - NICOTINE DEPENDENCE, UNSPECIFIED, UNCOMPLICATED (4) Shortness of breath Code(s): R06.02 - SHORTNESS OF BREATH Assessment/Plan Agree with Prednisone Would continue to monitor off ABX BD TX On D/C should be on LAMA/LABA O2 as needed No smoking counseled PFTs once stable as an outpatient Detox evaluation noted Will follow Thank you. Dr Caceres
[2018-08-31] MEDS ORDERED: cloNIDine HCL 0.1 MG TABLET PO SCH (15:45)
--- NOTE | 2018-08-31 18:48 | PN ---
Teaching Attending Note Name of Resident: Carolyn Wilkerson ATTENDING PHYSICIAN STATEMENT I saw and evaluated the patient. I reviewed the resident's note and discussed the case with the resident. I agree with the resident's findings and plan as documented. SUBJECTIVE: breathing has improved No fever or chills. no abd pain. no N/V . was agitated lat night OBJECTIVE: NA d CV: RRR Lungs: prolonged exp phase, scattered wheezing. no crackles Ext : no edema abd : soft, NT, ND, NL BS ASSESSMENT AND PLAN: 58 y/o man wiht h/o substance abuse, smoker, treated HCV who presented with SOb and was found to have acute COPD exacerbation 1- Acute COPD exacerbation : imporve d - switch to po prednisone - cont Nebs 2- opioids withdrawal : - d/w Detox MD - placed on suboxone.and plan for suboxone clinic f/u - cont clonidine and PRN benzos for withdrawal sx dispo : medically stable. ? transfer to [facility] tomorrow
[2018-08-31] MEDS: cloNIDine HCL 0.1 MG TABLET PO SCH (22:08)
[2018-08-31] MEDS: predniSONE 20 MG TABLET (UD) PO SCH (22:08)
[2018-09-01] MEDS: HEPARIN NA (PORCINE) 5,000 UNITS/ML 1ML VIAL SQ SCH ×2 (06:40→14:41)
[2018-09-01] MEDS: ALBUTEROL SO4 2.5/IPRATROPIUM 0.5 INH SOL 3 ML VIAL.NEB. NEB SCH ×3 (07:20→15:06)
[2018-09-01 08:07] LABS: HEMATOCRIT 40.7 % (35.4-49); HEMOGLOBIN 13.7 GM/dL (11.7-16.9); MCH 28.7 pg (25.7-33.7); MCHC 33.6 g/dl (32.0-35.9); MEAN CELL VOLUME 85.5 fl (80-96); MEAN PLT VOLUME 7.8 fl (7.5-11.1); PLATELET COUNT 222 K/MM3 (134-434); RBC 4.77 M/mm3 (4.00-5.60); RDW 13.4 % (11.9-15.9); WHITE BLOOD COUNT 9.6 K/mm3 (4.0-10.0)
[2018-09-01 08:39] LABS: ANION GAP 9 MMOL/L (8-16); BLOOD UREA NITROGEN 22 mg/dL (7-18); CALCIUM 8.6 mg/dL (8.5-10.1); CHLORIDE 101 mmol/L (98-107); CO2 27 mmol/L (21-32); GLUCOSE,RANDOM 156 mg/dL (74-106); SODIUM 137 mmol/L (136-145)
[2018-09-01] MEDS: BUPRENORPHINE/NALOXONE 8 MG/2 MG FILM PACKET SL SCH (09:42)
[2018-09-01] MEDS: predniSONE 20 MG TABLET (UD) PO SCH (09:42)
[2018-09-01] MEDS: NICOTINE 21 MG/24 HOURS TOPICAL PATCH TD SCH (09:42)
[2018-09-01] MEDS: PANTOPRAZOLE SODIUM 40 MG VIAL IVPUSH SCH (09:42)
[2018-09-01] MEDS: cloNIDine HCL 0.1 MG TABLET PO SCH (09:43)
--- NOTE | 2018-09-01 12:52 | PN ---
Progress Note (short form) - Note Progress Note: PULMONARY SLATED FOR DISCHARGE TODAY OFFERS NO COMPLAINTS VSS Constitutional: Yes: No Distress, Thin Eyes: Yes: Conjunctiva Clear, EOM Intact HENT: Yes: Atraumatic, Normocephalic Neck: Yes: Supple, Trachea Midline Cardiovascular: Yes: Regular Rate and Rhythm Respiratory: Yes: Cough, Diminished, On Nasal O2, Rhonchi, Tachypnea, Wheezes. No: Rales, Stridor ...Inspection: Yes: WNL ...Clubbing: No Gastrointestinal: Yes: Normal Bowel Sounds, Soft Musculoskeletal: Yes: WNL Extremities: Yes: WNL Edema: No Peripheral Pulses WNL: Yes Integumentary: Yes: WNL Neurological: Yes: WNL, Alert, Oriented Labs: Imaging - Results Chest X-ray: Report Reviewed, Image Reviewed Cat Scan: Report Reviewed, Image Reviewed Problem List - Problems (1) Acute exacerbation of chronic obstructive airways disease Code(s): J44.1 - CHRONIC OBSTRUCTIVE PULMONARY DISEASE W (ACUTE) EXACERBATION (2) COPD (chronic obstructive pulmonary disease) Code(s): J44.9 - CHRONIC OBSTRUCTIVE PULMONARY DISEASE, UNSPECIFIED (3) Smoker Code(s): F17.200 - NICOTINE DEPENDENCE, UNSPECIFIED, UNCOMPLICATED (4) Shortness of breath Code(s): R06.02 - SHORTNESS OF BREATH Assessment/Plan Agree with Prednisone taper as outpatient BD TX On D/C should be on LAMA/LABA No smoking counseled PFTs once stable as an outpatient Detox evaluation noted Will follow Mike MANNING MD
[2018-09-01 14:53] VITALS: BP 129/77; PULSE 82; TEMP 97.3
--- NOTE | 2018-09-01 15:34 | PN ---
Teaching Attending Note Name of Resident: Carolyn Wilkerson ATTENDING PHYSICIAN STATEMENT I saw and evaluated the patient. I reviewed the resident's note and discussed the case with the resident. I agree with the resident's findings and plan as documented. SUBJECTIVE: no fever or chills . No abd pain, n oHA , no diarrhea , no N/V OBJECTIVE: NAd . walking in hallway comfortably CV: RRR Lungs: prolonged exp phase, scattered wheezing. decreased breath sounds at bases Ext : no edema ASSESSMENT AND PLAN: 58 y/o man wiht h/o substance abuse, smoker, treated HCV who presented with SOb and was found to have acute COPD exacerbation 1- Acute COPD exacerbation :improved - cont po predniosne as out pt to fiish a taper. he was instructed not to stop abruptly - cont albuterol inhaler and give symbicort as out pt - f/u with pulm as out pt 2- Opioids withdrawal : - no sx. he made an appointment with suboxne clinic in [place]. Dr. Giles to prescribe suboxone for him . case was d/w her by resident. gertrude wu
--- NOTE | 2018-09-02 13:49 | DS ---
Physical Exam: SUBJECTIVE: Patient seen and examined at bedside. No acute events overnight. OBJECTIVE: Vital Signs Period Temp Pulse Resp BP Sys/Jernigan Pulse Ox Last 24 Hr 97.3 F 82 20 129/77 PHYSICAL EXAM GENERAL: AAOx3. NAD. Comfortable. HEENT: AT/NC. EOMI. VIOLETA. Moist mucus membranes. NECK: Supple. No LAD/JVD. LUNGS: Diffuse expiratory wheezes b/l. Symmetric chest rise. No accessory muscle use noted. Speaks in complete sentences. HEART: RRR. Normal S1, S2. No murmurs noted. ABDOMEN: Soft, NT/ND. +BS in all 4Qs. No masses or bruits noted. MUSCULOSKELETAL: 5/5 muscle strength in U/L B/L extremities. 2+ peripheral edema noted b/l LE. NEUROLOGICAL: Cranial nerves II-XII intact. Normal speech. SKIN: Warm, dry, normal turgor, no rashes or lesions noted, normal capillary refill. LABS HOSPITAL COURSE: Date of Admission:08/30/18 IMAGING: * CXR: Coarse lung changes. Questionable nodular density by anterior R first rib margin. * CT chest: Suggestive of early acute bronchitis or possibly early viral type infiltration. No segmental infiltrate. No discrete lung nodules identified which would correspond with CXR finding. * Doppler study: No evidence of DVT * ECHO (08/30/18): LV size, thickness, fxn are normal. LVEF is normal. LV wall motion is normal. There was insufficient TR to calculate RV systolic pressure. Aortic valve is not well visualized. Mild aortic valve thickening. Mild aortic sclerosis. Trace to mild MR. 58M w/ pmhx of Hep C (previously treated), hx of heroine/Suboxone abuse presents to the hospital with 3 day hx of worsening sob admitted for acute COPD exacerbation. Pt was treated with duonebs, Ventolin, Solumedrol for shortness of breath. CT chest was done that showed early acute bronchitis or possible viral type infiltration. Doppler study was done that showed no evidence of DVT. Upon exam, pt was found to have LE edema and as a result echocardiogram was ordered. Echo was unremarkable. One day 2 of hospital admission, pt started experiencing profuse abdominal pain with nausea and vomiting episodes. Upon evaluation, pt revealed he was a daily (unprescribed) Suboxone user as well as former heroine addict s/p extensive drug rehab on multiple occasions. Detox specialist was consulted. Upon detox MD chávez, pt was subsequently started on Suboxone detox. Additionally, pt was given Bentyl for his abdominal pain. Throughout the duration of his hospital course, pt's symptoms of sob and abdominal pain/vomiting improved markedly, and pt tolerated PO diet. He was discharged home and advised to follow up with his PCP, corn cutter for further evaluation of his lung fxn status, and GI to evaluate GI symptoms. An appointment was made for him to attend the outpatient Suboxone clinic at [facility] for drug rehab. Pt was discharged to home with instructions to take Ventolin, Symbicort, Prednisone, and Suboxone as directed. Date of Discharge: 09/02/18 Minutes to complete discharge: 40 Discharge Summary Reason For Visit: SHORTNESS OF BREATH Condition: Improved - Instructions Diet, Activity, Other Instructions: You came to the hospital for complaints of shortness of breath. In the hospital, you were evaluated and found to have an acute COPD exacerbation with bronchitis as the cause of your symptoms. You were given nebulizer treatments to help with your breathing. Additionally, you were seen by a detox physician to evaluate your Suboxone withdrawal. Throughout your hospital stay, your symptoms improved. You are being discharged home MEDICAL RECOMMENDATIONS Please also take Suboxone 8 mg once a day. It is important that you do not take more than the prescribed dosage. Please take Symbicort 2 puffs a day. Please take Albuterol inhaler as needed. Please take Prednisone with the following tapered dosage: Take Prednisone 40 mg daily x 2 days, then 30 mg daily for 2 days then 20 mg daily x 2 days then 10 mg daily x 2 days then stop. Please start this taper tomorrow, 09/02/18. CONSULT RECOMMENDATIONS Please follow up with your primary care physician within 1 week. If you do not have a primary care physician, you make an appointment at the residency clinic at [facility] with Dr. Wilkerson. The clinic is open Tuesday-Tuesday 9 -5pm. Please follow up with a GI doctor for further evaluation of your gastritis. You may need an endoscopy in the future to assess your abdominal pain. Please follow up with the pulmonary doctor, Dr. Caceres within 1 week. You will need to have pulmonary functions tests done to assess your lung function. Additionally, [place] [address]. The contact number is . You have an intake appointment for September 11, 2018 at the facility. Please make sure you follow up with your appointment for further rehab. If you experience worsening chest pain, shortness of breath, abdominal pain, persistent blood in your stool, mental status changes, worsening withdrawal symptoms due to heroine, please proceed to your nearest emergency room immediately. Referrals: [facility] [place] [Provider Group] - 1 Week Carolyn Wilkerson RES [Resident] - 1 Week Disposition: HOME - Home Medications Comprehensive Discharge Medication List: Ambulatory Orders Albuterol Sulfate Inhaler - [Ventolin HFA Inhaler -] 1 - 2 inh PO QID #1 inhaler 09/01/18 Budesonide/Formeterol Fumarate [SYMBICORT 160/4.5mcg -] 1 inh PO DAILY #1 cannister 09/01/18 predniSONE [Deltasone -] See Taper PO ASDIR #20 tab 09/01/18 Buprenorphine/Naloxone [Suboxone 8Mg/2Mg Sl Film -] 1 each SL DAILY 7 Days #7 packet MDD 8MG 09/02/18 This patient is new to me today: No Emergency Visit: Yes ED Registration Date: 08/30/18 Care time: The patient presented to the Emergency Department on the above date and was hospitalized for further evaluation of their emergent condition. Critical Care patient: No - Discharge Referral Referred to [facility] No
--- NOTE | 2018-09-02 14:35 | PN ---
[facility] Progress Note Note: BELT FIXER CALLED BY DR. Glendy STEVEN TO PROVIDE SUBOXONE PRESCRIPTION FOR PATIENT HE WAS D/C YESTERDAY EVENING AND MD WAS NOT IN FACILITY TO TRANSMIT ORDER. NOTE BY DR. TSEVEN REVIEWED AND DOSE CONFIRMED WITH MD: SUBOXONE 8MG/2MG DAILY. MEDICATION ORDERED AND TRANSMITTED TO [facility], HOWEVER ONLY ONE WEEK WORTH OF FILMS WAS ABLE TO BE ELECTRONICALLY SUBMITTED. DR. STEVEN INFORMED ONE WEEK OF SUBOXONE SENT TO PHARMACY.
== END 2018-09-01 16:21 | disposition home or self-care (01) | DRG 140 ==
LOC: JER 07:47 → MERGE 12:38 → JERBED 12:38 → J5S 15:15 → OBSVTOIN 08-30 15:50
PROVIDERS: ADMIT Internal Medicine; ATTEND Internal Medicine
PROC: HZ2ZZZZ Detoxification Services for Substance Abuse Treatment (ICD-10-PCS; principal; 2018-08-29)
DX: J44.1 Chronic obstructive pulmonary disease with (acute) exacerbation (principal); F11.23 Opioid dependence with withdrawal; J20.9 Acute bronchitis, unspecified; R91.8 Other nonspecific abnormal finding of lung field; B19.20 Unspecified viral hepatitis C without hepatic coma; R09.02 Hypoxemia; R00.0 Tachycardia, unspecified; F17.210 Nicotine dependence, cigarettes, uncomplicated; E87.6 Hypokalemia; J44.0 Chronic obstructive pulmonary disease with (acute) lower respiratory infection; F19.10 Other psychoactive substance abuse, uncomplicated; I70.0 Atherosclerosis of aorta; I50.9 Heart failure, unspecified
CPT/HCPCS: 36415; 71046-TC-FY; 71250-TC; 80048; 80053; 80307; 83735; 84100; 84484; 85025; 85027; 87070; 87205; 93005; 93010; 93306-TC; 93970-TC; 94640; 94761; 99281-25; 99284-25; G0378; J0735

== ENCOUNTER 2019-11-08 12:01 | Emergency (ER) | payer OTHER ==
[2019-11-08 12:09] VITALS: TEMP 98; BMI 32.8
--- NOTE | 2019-11-08 12:34 | PDOC ---
History of Present Illness - General Chief Complaint: Shortness of Breath Stated Complaint: SENT BY DOC Time Seen by Provider: 11/08/19 12:24 Past History - Past Medical History Allergies/Adverse Reactions: Allergies Allergy/AdvReac Type Severity Reaction Status Date / Time No Known Allergies Allergy Verified 11/08/19 12:04 Home Medications: Ambulatory Orders Albuterol Sulfate Inhaler - [Ventolin HFA Inhaler -] 1 - 2 inh PO QID #1 inhaler 09/01/18 Budesonide/Formeterol Fumarate [SYMBICORT 160/4.5mcg -] 1 inh PO DAILY #1 cannister 09/01/18 predniSONE [Deltasone -] See Taper PO ASDIR #20 tab 09/01/18 Buprenorphine/Naloxone [Suboxone 8Mg/2Mg Sl Film -] 1 each SL DAILY 7 Days #7 packet MDD 8MG 09/02/18 Anemia: No Asthma: No Cancer: No Cardiac Disorders: No CVA: No COPD: No CHF: No Dementia: No Diabetes: No Dialysis: No GI Disorders: No Disorders: No HTN: No Hypercholesterolemia: No Kidney Stones: No Liver Disease: Yes (hepatitis C) Seizures: No Thyroid Disease: No - Surgical History Orthopedic Surgery: Yes (right hand) - Psycho Social/Smoking Cessation Hx Smoking Status: Yes Smoking History: Unknown if ever smoked Years of Tobacco Use: 40 Have you smoked in the past 12 months: Yes Number of Cigarettes Smoked Daily: 20 'Breaking Loose' booklet given: 08/29/18 Hx Alcohol Use: No Drug/Substance Use Hx: No Substance Use Type: None Hx Substance Use Treatment: No *Physical Exam - Vital Signs Last Vital Signs Temp Pulse Resp BP Pulse Ox 98 F 69 26 H 172/98 H 95 11/08/19 12:04 11/08/19 12:04 11/08/19 12:04 11/08/19 12:04 11/08/19 12:04 Medical Decision Making - Medical Decision Making 11/08/19 12:43 HPI: 59yo M hx HTN, COPD (baseline O2 sat 97% on RA), sleep apnea, smoking, and methadone presents from outpatient clinic with headache and self-resolved episode of shortness of breath, chest tightness, and hypoxia to 88% s/p phrenic nerve disruption by interscalene nerve block with Naropin 0.5% and Lidocaine 1% prior to L shoulder arthroscopy. Pt c/o diffuse and bitemporal pressure type "stress headache" gradually worsening since event, exactly the same as prior stress headaches when gets frustrated, normally takes advil at home. During anesthesia, pt developed acute onset SOB and substernal chest tightness only with deep breaths, gradually resolving over 30min. Pt denies current SOB, chest pain, cough, palpitations, nausea, vomiting, abdominal pain. Endorses LUE tingling/numbness 2/2 anesthesia injection (told would resolve within 24 hours), gradually going away. Denies other numbness/tingling or weakness. Pt in USOH prior to surgery. Surgery was not done due to event. Surgery at [facility]. Allergies: Tylenol Orthopedic Surgeon: Dr. Salmon PCP: shiela Elliott: Chet ROS: Constitutional: Negative for chills, fever, fatigue, diaphoresis. HENT: Negative for sore throat, rhinorrhea, congestion. Eyes: Negative for visual disturbance. Respiratory: Positive for shortness of breath and hypoxia. Negative for cough, and wheezing. Cardiovascular: Positive for chest tightness. Negative for palpitations, and leg swelling. Gastrointestinal: Negative for abdominal pain, blood in stool, constipation, diarrhea, nausea, and vomiting. Genitourinary: Negative for dysuria, flank pain, and hematuria. Musculoskeletal: Negative for myalgias, back pain, and neck pain. Skin: Negative for rash. Neurological: Positive for numbness/tingling LUE and headache. Negative for li ght-headedness, dizziness, vertigo, syncope, weakness. Psychiatric/Behavioral: Negative for behavioral problems and confusion. PE: Gen: Alert, NAD, frustrated but comfortable-appearing, pacing in room HEENT: PERRL, EOMI, MMM, NCAT. No conjunctival pallor. Sclera are non-icteric. Oropharynx is clear. CV: Regular rate and rhythm. No murmurs, rubs, or gallops. PULM: No resp distress. CTAB, no wheezes, rales, or rhonchi. ABD: soft, NT/ND, no rebound tenderness or guarding, no CVA tenderness. BACK: No TTP of c/t/l-spine. No step-offs or deformities. MSK: No bony deformities. 2+ pulses in all extremities. NEURO: AAOx3. PERRL. CN 2-12 intact. 5/5 strength in all extremities. Sensation to light touch intact in all extremities. No abnormal nystagmus. Normal gait. EXTREMITIES: No cyanosis. No clubbing. No edema. No calf tenderness. +L middle finger partial amputation. PSYCH: Frustrated mood and normal thought pattern. SKIN: Warm and dry. Normal capillary refill. No rashes. No jaundice. MDM: 59yo M hx HTN, COPD (baseline O2 sat 97% on RA), sleep apnea, smoking, and methadone presents from outpatient clinic with headache and self-resolved episode of shortness of breath, chest tightness, and hypoxia s/p phrenic nerve disruption by interscalene nerve block with Naropin 0.5% and Lidocaine 1% prior to L shoulder arthroscopy. O2 sat 95-97%, no respiratory distress, stable pulse, normotensive, afebrile, lungs CTAB. Presentation c/w temporary unilateral diaphragm paralysis 2/2 phrenic nerve disruption by anesthesia, resolved as anesthesia is wearing off. Also consider PTX - r/o with CXR. Low concern for arrhythmia or ACS/WY due to onset during anesthesia and lack of chest pain/N/V/diaphoresis and lack of hx ACS/WY - eval with EKG. Due to onset during anesthesia and gradual improvement since administration, low concern for other pathologies such as PNA, anemia, or metabolic derangement - no indication for labs at this time. Headache c/w tension headaches - ibuprofen and reassess. -CXR -Pain management: Ibuprofen -EKG reviewed: NSR, 62bpm, normal intervals, normal axis, no e/o acute ischemia -POCUS Lungs: lung sliding present b/l -Dispo: pending w/u and reassessment 11/08/19 13:37 CXR reviewed: no acute pathology Headache improved, pt feeling better, pt wants to go home. O2 sat remains stable ~97%, other VSS. Attending Dr Sharma discussed case with Anesthesia - determined safe for discharge. Safe for discharge. Discharge - Discharge Information Problems reviewed: Yes Clinical Impression/Diagnosis: Shortness of breath Condition: Improved Disposition: HOME - Admission No - Follow up/Referral - Patient Discharge Instructions Patient Printed Discharge Instructions: DI for Shortness of Breath Additional Instructions: You have been seen in the Emergency Department for your shortness of breath during your shoulder procedure. Your chest X-ray showed no signs of a lung injury or emergent condition. Follow up with your primary care doctor within 72 hours. Return to the Emergency Department immediately for any shortness of breath, chest pain, dizziness, passing out, or any other new or worsening symptom. - Post Discharge Activity
[2019-11-08] MEDS ORDERED: IBUPROFEN 600 MG TABLET (FP) PO ONE ×2 (12:40)
[2019-11-08 14:07] VITALS: BP 165/88; PULSE 89
--- NOTE | 2019-11-08 16:04 | EKG ---
Test Reason : Blood Pressure : / mmHG Vent. Rate : 062 BPM Atrial Rate : 062 BPM P-R Int : 206 ms QRS Dur : 074 ms QT Int : 426 ms P-R-T Axes : 058 -19 029 degrees QTc Int : 432 ms POOR DATA QUALITY, INTERPRETATION MAY BE ADVERSELY AFFECTED NORMAL SINUS RHYTHM NORMAL ECG WHEN COMPARED WITH ECG OF 30-AUG-2018 14:33, VENT. RATE HAS DECREASED BY 35 BPM CRITERIA FOR INFERIOR INFARCT ARE NO LONGER PRESENT Confirmed by KASSY SUMNER MD ([id number]) on 11/08/2019 4:04:10 PM Referred By: Confirmed By:KASSY SUMNER MD
--- NOTE | 2019-11-09 16:36 | PDOC ---
Documentation entered by Mierlla Sanchez SCRIBE, acting as scribe for Reddy Sharma MD. Reddy Sharma MD: This documentation has been prepared by the Laura baumann Nirvannie, SCRIBE, under my direction and personally reviewed by me in its entirety. I confirm that the documentation accurately reflects all work, treatment, procedures, and medical decision making performed by me. Attending Attestation - Resident Resident Name: GladisanitaTrista - ED Attending Attestation I have performed the following: I have examined & evaluated the patient, The case was reviewed & discussed with the resident, I agree w/resident's findings & plan, Exceptions are as noted - HPI HPI: 11/08/19 13:28 CC: s/p episode of hypoxia and chest tightness after administration of anesthesia HPI: The patient is a 59 year old male, with a significant past medical history of hypertension, COPD/sleep apnea (smoker, baseline O2 97% on room air), on a methadone program, who presents to the emergency department s/p episode of hy poxia and chest tightness after administration of anesthesia. As per patient and ambulatory surgery paperwork, he was at [facility] in the [place] at 9am (4 hours [employer]) for an outpatient left shoulder arthroscopy at which time he was supposed to have an interscalene nerve block with Naropin 0.5% and Lidocaine 1%, however, the phrenic nerve was hit. Patient was told to have chest wall paralysis and desaturated to 88%. Patient notes at the time of the episode he experienced chest tightness with poor inspiration which has since resolved. He denies any current shortness of breath, diaphoresis, chest pain, or focal changes in strength/sensation. Allergies: Tylenol Orthopedic Surgeon: Dr. Salmon - Physicial Exam PE: 11/12/19 13:57 Vitals: Triage Vital signs reviewed General Appearance: No acute distress, well nourished well developed, Head: Atraumatic, Cardiac: Regular rate and rhythym, no murmurs, no rubs, no gallops, Lungs: Clear to auscultation bilateral, good air movement bilaterally, Abdomen: Soft, non distended, normal bowel sounds, non tender to palpation Extremities: Full range of motion to all extremities, no cyanosis, clubbing, or edema Skin: Warm and dry, no rashes or lesions, no rash, no petechiae Psych: Normal mood, normal affect - Medical Decision Making 11/08/19 13:28 59 year old male, with a significant past medical history of hypertension, COPD/sleep apnea (smoker, baseline O2 97% on room air), on a methadone program, who presents to the emergency department s/p episode of hypoxia and chest tightn ess after administration of anesthesia. Plan is: CXR EKG Ibuprofen 11/12/19 13:57 Patient received a interscalene block with some partial effect on the phrenic nerves patient had brief desat which is since resolved is currently satting 97% with no difficulty breathing Case discussed with anesthesia it is been approximately 4 hours since time of block patient demonstrates no evidence of respiratory compromise patient stable for discharge home Findings, the need for follow-up and strict return instructions discussed with patient.
== END 2019-11-08 14:07 | disposition home or self-care (01) ==
LOC: JER 12:01
PROC: BB4BZZZ Ultrasonography of Pleura (ICD-10-PCS; principal; 2019-11-08)
DX: R06.02 Shortness of breath (principal); Y83.8 Other surgical procedures as the cause of abnormal reaction of the patient, or of later complication, without mention of misadventure at the time of the procedure; T88.59XA Other complications of anesthesia, initial encounter; T80.89XA Other complications following infusion, transfusion and therapeutic injection, initial encounter; Y92.530 Ambulatory surgery center as the place of occurrence of the external cause; I10 Essential (primary) hypertension; J44.9 Chronic obstructive pulmonary disease, unspecified; G47.39 Other sleep apnea; F17.210 Nicotine dependence, cigarettes, uncomplicated; F11.20 Opioid dependence, uncomplicated; Z86.19 Personal history of other infectious and parasitic diseases
CPT/HCPCS: 71046-TC-FY; 93005; 93010; 99284-25

== ENCOUNTER 2020-09-16 21:01 | Inpatient (IN) | payer OTHER ==
[2020-09-16 21:21] VITALS: BMI 33.6
[2020-09-16] MEDS ORDERED: SODIUM CHLORIDE 0.9% 500 ML INFUS.BAG IV ONE (21:48)
[2020-09-16 22:42] LABS: BASO % 0.6 % (0-2.0); EOS % 4.6 % (0-4.5); HEMATOCRIT 42.5 % (35.4-49); HEMOGLOBIN 14.3 GM/dL (11.7-16.9); LYMPH % 19.1 % (8-40); MCH 29.3 pg (25.7-33.7); MCHC 33.6 g/dl (32.0-35.9); MEAN CELL VOLUME 87.2 fl (80-96); MEAN PLT VOLUME 7.7 fl (7.5-11.1); MONO % 5.8 % (3.8-10.2); NEUT % 69.9 % (42.8-82.8); PLATELET COUNT 199 K/MM3 (134-434); RBC 4.87 M/mm3 (4.00-5.60); RDW 14.1 % (11.9-15.9)
[2020-09-16] MEDS ORDERED: ACETAMINOPHEN 1000 MG/100 ML VIAL (NON FORMULARY) IVPB ONE (22:44)
[2020-09-16] MEDS ORDERED: ACETAMINOPHEN INJECTION 100 ML IVPB ONE (22:48)
[2020-09-16] MEDS ORDERED: LOSARTAN POTASSIUM 50 MG TABLET PO ONE (22:58)
[2020-09-16] MEDS ORDERED: HYDROCHLOROTHIAZIDE 25 MG TABLET (FP) PO ONE (22:58)
[2020-09-16] MEDS ORDERED: ATENOLOL 25 MG TABLET (FP) PO ONE (23:00)
[2020-09-16] MEDS ORDERED: ATENOLOL 25 MG TABLET (FP) ONE (23:09)
[2020-09-16] MEDS ORDERED: HYDROCHLOROTHIAZIDE 25 MG TABLET (FP) ONE (23:10)
[2020-09-16] MEDS ORDERED: LOSARTAN POTASSIUM 50 MG TABLET ONE (23:10)
[2020-09-16 23:30] LABS: ALBUMIN 3.2 g/dl (3.4-5.0); ALK PHOS 73 U/L (45-117); ANION GAP 10 MMOL/L (8-16); BILIRUBIN,TOTAL 0.4 mg/dL (0.2-1); BLOOD UREA NITROGEN 19.9 mg/dL (7-18); CALCIUM 8.8 mg/dL (8.5-10.1); CHLORIDE 100 mmol/L (98-107); CO2 28 mmol/L (21-32); CREATININE 0.7 mg/dL (0.55-1.3); GLUCOSE,RANDOM 120 mg/dL (74-106); POTASSIUM 4.5 mmol/L (3.5-5.1); SGOT/AST 21 U/L (15-37); SGPT/ALT 16 U/L (13-61); SODIUM 138 mmol/L (136-145); TOT PROT 7.8 g/dl (6.4-8.2)
[2020-09-17] MEDS ORDERED: AMOX TR/POT CLAV 875MG/125MG TABLETS (FP) PO ONE (01:35)
[2020-09-17] MEDS ORDERED: AZITHROMYCIN 250 MG TABLET PO ONE (01:35)
[2020-09-17] MEDS ORDERED: IBUPROFEN 600 MG TABLET (FP) PO ONE ×2 (01:36→01:48)
[2020-09-17] MEDS ORDERED: AMOX TR/POT CLAV 875MG/125MG TABLETS (FP) ONE (01:48)
[2020-09-17] MEDS ORDERED: AZITHROMYCIN 250 MG TABLET ONE (01:48)
[2020-09-17] MEDS ORDERED: CEFTRIAXONE 1 GM in DEXTROSE 5%-WATER - 100 ML IVPB ONE (01:51)
[2020-09-17] MEDS ORDERED: AZITHROMYCIN IVPB 500 MG in DEXTROSE 5%-WATER - 250 ML IVPB ONE (01:51)
[2020-09-17] MEDS ORDERED: CEFTRIAXONE 1 GM/50 ML BAG ONE (01:56)
[2020-09-17] MEDS ORDERED: AZITHROMYCIN IVPB 500 MG/250 ML BAG IVPB ONE (02:40)
[2020-09-17] MEDS ORDERED: IBUPROFEN 400 MG TABLET (FP) PO PRN (03:36)
[2020-09-17] MEDS ORDERED: ALBUTEROL SO4 2.5/IPRATROPIUM 0.5 INH SOL 3 ML VIAL.NEB. NEB PRN (03:53)
[2020-09-17] MEDS ORDERED: ACETAMINOPHEN 325 MG TABLET (FP) PO PRN (09:35)
[2020-09-17] MEDS: ENOXAPARIN NA (PORCINE) 40 MG/0.4 ML DISP.SYRIN SQ SCH ×2 (10:11→11:34)
[2020-09-17] MEDS ORDERED: KETOROLAC TROMETHAMINE 15 MG/ML VIAL IVPUSH ONE (11:00)
[2020-09-17 11:57] LABS: BASO % 0.4 % (0-2.0); HEMATOCRIT 40.7 % (35.4-49); HEMOGLOBIN 13.6 GM/dL (11.7-16.9); LYMPH % 6.5 % (8-40); MCH 29.1 pg (25.7-33.7); MCHC 33.4 g/dl (32.0-35.9); MEAN CELL VOLUME 87.2 fl (80-96); MEAN PLT VOLUME 7.8 fl (7.5-11.1); MONO % 7.2 % (3.8-10.2); NEUT % 84.9 % (42.8-82.8); PLATELET COUNT 271 K/MM3 (134-434); RBC 4.66 M/mm3 (4.00-5.60); RDW 14.1 % (11.9-15.9); WHITE BLOOD COUNT 16.7 K/mm3 (4.0-10.0)
[2020-09-17 12:15] LABS: POTASSIUM 3.9 mmol/L (3.5-5.1)
[2020-09-17 12:17] LABS: CALCIUM 9.1 mg/dL (8.5-10.1); MAGNESIUM 2.2 mg/dL (1.8-2.4)
[2020-09-17 12:20] LABS: CREATININE 0.7 mg/dL (0.55-1.3)
[2020-09-17] MEDS: MORPHINE SULFATE 2 MG/ML VIAL IVPUSH PRN (17:01)
[2020-09-17] MEDS: PIPERACILLIN/TAZOB 3.375 GM 3.375 GM in DEXTROSE 5%-WATER - 50 ML IVPB SCH (17:38)
[2020-09-17] MEDS: VANCOMYCIN HCL 1,250 MG in DEXTROSE 5%-WATER - 1,250 MG/250 ML IVPB IVPB SCH (17:38)
[2020-09-17 18:37] LABS: PH,URINE 7.5 (5.0-8.0); URINE APPEARANCE Clear; URINE BILIRUBIN Negative (NEGATIVE); URINE COLOR Yellow; URINE GLUCOSE (UA) Negative (NEGATIVE); URINE KETONE Negative (NEGATIVE); URINE LEUK ESTERASE Negative (NEGATIVE); URINE NITRITE Negative (NEGATIVE); URINE PROTEIN 1+ (NEGATIVE); URINE UROBILINOGEN 0.2 mg/dL (0.2-1.0)
[2020-09-17] MEDS: ASCORBIC ACID 250 MG TABLET (FP) PO SCH (21:26)
[2020-09-17] MEDS ORDERED: MORPHINE SULFATE 2 MG/ML VIAL IVPUSH ONE (21:43)
[2020-09-18] MEDS: PIPERACILLIN/TAZOB 3.375 GM 3.375 GM in DEXTROSE 5%-WATER - 50 ML IVPB SCH ×3 (01:24→18:12)
[2020-09-18] MEDS: MORPHINE SULFATE 2 MG/ML VIAL IVPUSH PRN ×2 (01:39→12:23)
[2020-09-18] MEDS: VANCOMYCIN HCL 1,250 MG in DEXTROSE 5%-WATER - 1,250 MG/250 ML IVPB IVPB SCH ×2 (04:46→18:11)
[2020-09-18 08:41] LABS: BASO % 0.4 % (0-2.0); EOS % 0.2 % (0-4.5); HEMATOCRIT 41.5 % (35.4-49); HEMOGLOBIN 13.7 GM/dL (11.7-16.9); LYMPH % 5.8 % (8-40); MCH 28.7 pg (25.7-33.7); MCHC 33.1 g/dl (32.0-35.9); MEAN CELL VOLUME 86.6 fl (80-96); MEAN PLT VOLUME 7.6 fl (7.5-11.1); MONO % 6.1 % (3.8-10.2); NEUT % 87.5 % (42.8-82.8); PLATELET COUNT 258 K/MM3 (134-434); RBC 4.79 M/mm3 (4.00-5.60); RDW 13.8 % (11.9-15.9); WHITE BLOOD COUNT 24.4 K/mm3 (4.0-10.0)
[2020-09-18 08:49] LABS: INR 1.4 (0.83-1.09)
[2020-09-18 08:51] LABS: POTASSIUM 3.4 mmol/L (3.5-5.1)
[2020-09-18 08:53] LABS: ALBUMIN 2.9 g/dl (3.4-5.0); BLOOD UREA NITROGEN 21.6 mg/dL (7-18); CALCIUM 8.9 mg/dL (8.5-10.1); MAGNESIUM 2.3 mg/dL (1.8-2.4)
[2020-09-18 08:57] LABS: CREATININE 0.8 mg/dL (0.55-1.3)
[2020-09-18 08:59] LABS: BILIRUBIN,TOTAL 0.7 mg/dL (0.2-1); TOT PROT 7.7 g/dl (6.4-8.2)
[2020-09-18] MEDS: LOSARTAN POTASSIUM 50 MG TABLET PO SCH (09:59)
[2020-09-18] MEDS ORDERED: AZITHROMYCIN IVPB 500 MG/250 ML BAG IVPB SCH (10:00)
[2020-09-18] MEDS ORDERED: CEFTRIAXONE 1 GM in DEXTROSE 5%-WATER - 50 ML IVPB SCH (10:00)
[2020-09-18] MEDS: HYDROCHLOROTHIAZIDE 25 MG TABLET (FP) PO SCH (10:02)
[2020-09-18] MEDS: ATENOLOL 25 MG TABLET (FP) PO SCH (10:02)
[2020-09-18] MEDS: ZINC SULFATE 220 MG CAPSULE (FP) PO SCH (10:02)
[2020-09-18] MEDS: CHOLECALCIFEROL (VIT D3) 1,000 UNIT (25 MCG) TABLET PO SCH (10:02)
[2020-09-18] MEDS: ASCORBIC ACID 250 MG TABLET (FP) PO SCH ×2 (10:02→22:16)
[2020-09-18 11:12] LABS: ERYTHROCYTE SEDIMENTATION RATE 72 mm/hr (0-20)
[2020-09-18] MEDS ORDERED: PIPERACILLIN/TAZOBACTAM 3.375 GM VIAL IVPB ONE (11:26)
[2020-09-18] MEDS ORDERED: DEXTROSE 5%-WATER - 50 ML IVPB ONE (11:26)
[2020-09-18] MEDS ORDERED: POTASSIUM CHLORIDE TABS 20 MEQ TABLET.ER (FP) PO ONE (11:27)
[2020-09-18 11:33] LABS: ANISOCYTOSIS 2+; MACROCYTOSIS 1+; PLATELET ESTIMATE NORMAL
[2020-09-18] MEDS ORDERED: ONDANSETRON 4 MG/2 ML VIAL IVPUSH ONE (14:38)
[2020-09-18] MEDS ORDERED: MORPHINE SULFATE 2 MG/ML VIAL IVPUSH ONE (16:35)
[2020-09-18] MEDS ORDERED: ALBUTEROL SO4 HFA INHALER IH PRN (16:43)
[2020-09-18 18:12] LABS: BF WBC & OTHER NUCLEATED CELLS 11802 /mm3
[2020-09-18 20:11] LABS: BODY FLUID MONOCYTE 6 %; BODYL FLD EOSINOPHIL 1 %
[2020-09-18] MEDS ORDERED: IBUPROFEN 800 MG/8 ML IJ IVPB ONE (20:47)
[2020-09-19] MEDS: PIPERACILLIN/TAZOB 3.375 GM 3.375 GM in DEXTROSE 5%-WATER - 50 ML IVPB SCH ×3 (01:23→17:49)
[2020-09-19] MEDS: VANCOMYCIN HCL 1,250 MG in DEXTROSE 5%-WATER - 1,250 MG/250 ML IVPB IVPB SCH ×2 (05:18→17:47)
[2020-09-19] MEDS: MORPHINE SULFATE 2 MG/ML VIAL IVPUSH PRN ×2 (05:26→22:59)
[2020-09-19] MEDS: LOSARTAN POTASSIUM 50 MG TABLET PO SCH (09:35)
[2020-09-19] MEDS: ENOXAPARIN NA (PORCINE) 40 MG/0.4 ML DISP.SYRIN SQ SCH (09:35)
[2020-09-19] MEDS: HYDROCHLOROTHIAZIDE 25 MG TABLET (FP) PO SCH (09:35)
[2020-09-19] MEDS: CHOLECALCIFEROL (VIT D3) 1,000 UNIT (25 MCG) TABLET PO SCH (09:36)
[2020-09-19] MEDS: ZINC SULFATE 220 MG CAPSULE (FP) PO SCH (09:36)
[2020-09-19] MEDS: ATENOLOL 25 MG TABLET (FP) PO SCH (09:36)
[2020-09-19] MEDS: ASCORBIC ACID 250 MG TABLET (FP) PO SCH ×2 (09:36→22:34)
[2020-09-19 09:44] LABS: POTASSIUM 3.5 mmol/L (3.5-5.1)
[2020-09-19 10:00] LABS: ALBUMIN 2.6 g/dl (3.4-5.0); BLOOD UREA NITROGEN 34.4 mg/dL (7-18)
[2020-09-19 10:02] LABS: BILIRUBIN,TOTAL 0.7 mg/dL (0.2-1)
[2020-09-19 10:04] LABS: BASO % 0.4 % (0-2.0); EOS % 1.1 % (0-4.5); HEMATOCRIT 37.7 % (35.4-49); HEMOGLOBIN 12.6 GM/dL (11.7-16.9); LYMPH % 5.4 % (8-40); MAGNESIUM 2.2 mg/dL (1.8-2.4); MCH 28.8 pg (25.7-33.7); MCHC 33.5 g/dl (32.0-35.9); MEAN CELL VOLUME 85.9 fl (80-96); MEAN PLT VOLUME 7.8 fl (7.5-11.1); MONO % 5.5 % (3.8-10.2); NEUT % 87.6 % (42.8-82.8); PLATELET COUNT 261 K/MM3 (134-434); RBC 4.39 M/mm3 (4.00-5.60); RDW 14.1 % (11.9-15.9)
[2020-09-19 10:05] LABS: CREATININE 1.6 mg/dL (0.55-1.3); TOT PROT 7.1 g/dl (6.4-8.2)
[2020-09-19 10:06] LABS: CALCIUM 8.9 mg/dL (8.5-10.1); PHOSPHOROUS 3.4 mg/dL (2.5-4.9)
[2020-09-19] MEDS ORDERED: SODIUM CHLORIDE 500 ML IV STA (11:09)
[2020-09-19 13:04] LABS: ANISOCYTOSIS 1+; MACROCYTOSIS 1+; PLATELET ESTIMATE NORMAL
[2020-09-19] MEDS: guaiFENesin 200 MG/10 ML 10 ML UNIT-DOSE CUPS PO PRN (19:19)
[2020-09-19 22:45] LABS: URINE BENZODIAZEPINES NEGATIVE ng/ml (CUTOFF=200)
[2020-09-19 22:46] LABS: PHENCYCLIDINE,URINE NEGATIVE ng/ml (CUTOFF=25)
[2020-09-19 23:36] LABS: COCAINE, UR NEGATIVE ng/ml (CUTOFF=300); URINE AMPHETAMINES NEGATIVE ng/ml (CUTOFF=500); URINE BARBITURATES NEGATIVE ng/ml (CUTOFF=200)
[2020-09-19 23:39] LABS: METHADONE, UR POSITIVE ng/ml (CUTOFF=300); OPIATES, URI POSITIVE ng/ml (CUTOFF=300)
[2020-09-20] MEDS: PIPERACILLIN/TAZOB 3.375 GM 3.375 GM in DEXTROSE 5%-WATER - 50 ML IVPB SCH ×3 (02:04→17:44)
[2020-09-20] MEDS ORDERED: IBUPROFEN 200 MG TABLET PO ONE (02:30)
[2020-09-20] MEDS ORDERED: IBUPROFEN 800 MG/8 ML IJ IVPB PRN (02:45)
[2020-09-20] MEDS: VANCOMYCIN HCL 1,250 MG in DEXTROSE 5%-WATER - 1,250 MG/250 ML IVPB IVPB SCH (05:34)
[2020-09-20] MEDS ORDERED: SODIUM CHLORIDE 0.9% 500 ML INFUS.BAG IV ONE (09:50)
[2020-09-20 10:46] LABS: BASO % 0.2 % (0-2.0); HEMATOCRIT 33.3 % (35.4-49); HEMOGLOBIN 11.1 GM/dL (11.7-16.9); LYMPH % 7.2 % (8-40); MCHC 33.4 g/dl (32.0-35.9); MEAN CELL VOLUME 86.7 fl (80-96); MEAN PLT VOLUME 7.6 fl (7.5-11.1); NEUT % 80.6 % (42.8-82.8); PLATELET COUNT 240 K/MM3 (134-434); RBC 3.84 M/mm3 (4.00-5.60); RDW 13.7 % (11.9-15.9); WHITE BLOOD COUNT 14.1 K/mm3 (4.0-10.0)
[2020-09-20] MEDS: ENOXAPARIN NA (PORCINE) 40 MG/0.4 ML DISP.SYRIN SQ SCH (10:54)
[2020-09-20] MEDS: CHOLECALCIFEROL (VIT D3) 1,000 UNIT (25 MCG) TABLET PO SCH (10:55)
[2020-09-20] MEDS: ATENOLOL 25 MG TABLET (FP) PO SCH (10:55)
[2020-09-20] MEDS: METOCLOPRAMIDE HCL INJECTION 10 MG/2 ML VIAL IVPUSH PRN (11:02)
[2020-09-20] MEDS: guaiFENesin 200 MG/10 ML 10 ML UNIT-DOSE CUPS PO PRN (11:03)
[2020-09-20 11:21] LABS: ALBUMIN 2.1 g/dl (3.4-5.0); BLOOD UREA NITROGEN 47.4 mg/dL (7-18); CALCIUM 8.2 mg/dL (8.5-10.1); MAGNESIUM 2.6 mg/dL (1.8-2.4)
[2020-09-20 11:24] LABS: CREATININE 3.4 mg/dL (0.55-1.3)
[2020-09-20 11:25] LABS: BILIRUBIN,TOTAL 0.9 mg/dL (0.2-1); PHOSPHOROUS 4.8 mg/dL (2.5-4.9)
[2020-09-20 11:26] LABS: TOT PROT 6.3 g/dl (6.4-8.2)
[2020-09-20 11:48] LABS: POTASSIUM 2.9 mmol/L (3.5-5.1)
[2020-09-20] MEDS ORDERED: POTASSIUM CHLORIDE ORAL LIQUID 20 MEQ/15 ML PO ONE (12:16)
[2020-09-20] MEDS: KCL 10 MEQ IVPB 10 MEQ/100 ML INFUS.BAG IVPB SCH ×3 (13:25→15:39)
[2020-09-20] MEDS: HEPARIN NA (PORCINE) 5,000 UNITS/ML 1ML VIAL SQ SCH ×2 (13:59→22:19)
[2020-09-20 16:03] LABS: EPI CELLS 13 /uL (0-25.1); HYALINE CASTS 2 /uL (0-3.1); URINE APPEARANCE CLOUDY; URINE BACTERIA 27 /uL (0-1359); URINE BILIRUBIN NEGATIVE (NEGATIVE); URINE COLOR YELLOW; URINE GLUCOSE (UA) NEGATIVE (NEGATIVE); URINE KETONE NEGATIVE (NEGATIVE); URINE LEUK ESTERASE NEGATIVE (NEGATIVE); URINE NITRITE NEGATIVE (NEGATIVE); URINE PROTEIN 1+ (NEGATIVE); URINE RBC 18 /uL (0-23.9); URINE UROBILINOGEN 0.2 mg/dL (0.2-1.0); URINE WBC 21 /uL (0-25.8)
[2020-09-20] MEDS: MORPHINE SULFATE 2 MG/ML VIAL IVPUSH PRN ×2 (17:16→23:00)
[2020-09-20 18:16] LABS: YEAST NEGATIVE (NEGATIVE)
[2020-09-21] MEDS: PIPERACILLIN/TAZOB 3.375 GM 3.375 GM in DEXTROSE 5%-WATER - 50 ML IVPB SCH ×3 (02:00→21:20)
[2020-09-21] MEDS: HEPARIN NA (PORCINE) 5,000 UNITS/ML 1ML VIAL SQ SCH ×3 (05:01→21:18)
[2020-09-21] MEDS: MORPHINE SULFATE 2 MG/ML VIAL IVPUSH PRN ×3 (05:01→19:45)
[2020-09-21] MEDS: METOCLOPRAMIDE HCL INJECTION 10 MG/2 ML VIAL IVPUSH PRN (08:38)
[2020-09-21] MEDS ORDERED: VANCOMYCIN HCL 1,250 MG in DEXTROSE 5%-WATER - 1,250 MG/250 ML IVPB IVPB SCH (10:00)
[2020-09-21] MEDS ORDERED: SODIUM CHLORIDE 0.9% 500 ML INFUS.BAG IV ONE (10:00)
[2020-09-21 10:08] LABS: BASO % 0.3 % (0-2.0); EOS % 1.8 % (0-4.5); HEMATOCRIT 36.3 % (35.4-49); HEMOGLOBIN 12.1 GM/dL (11.7-16.9); MCH 28.7 pg (25.7-33.7); MCHC 33.4 g/dl (32.0-35.9); MEAN PLT VOLUME 7.7 fl (7.5-11.1); MONO % 9.1 % (3.8-10.2); NEUT % 80.8 % (42.8-82.8); PLATELET COUNT 271 K/MM3 (134-434); RBC 4.22 M/mm3 (4.00-5.60)
[2020-09-21 10:24] LABS: POTASSIUM 3.4 mmol/L (3.5-5.1)
[2020-09-21 10:30] LABS: ALBUMIN 2.4 g/dl (3.4-5.0); CALCIUM 8.6 mg/dL (8.5-10.1)
[2020-09-21 10:33] LABS: CREATININE 3.9 mg/dL (0.55-1.3)
[2020-09-21 10:36] LABS: BILIRUBIN,TOTAL 1.1 mg/dL (0.2-1); TOT PROT 6.9 g/dl (6.4-8.2)
[2020-09-21] MEDS: CHOLECALCIFEROL (VIT D3) 1,000 UNIT (25 MCG) TABLET PO SCH (10:42)
[2020-09-21] MEDS: ATENOLOL 25 MG TABLET (FP) PO SCH (10:42)
[2020-09-22 00:07] LABS: BODY FLUID ALBUMIN 3.1 g/dL (Not Estab.)
[2020-09-22] MEDS ORDERED: MORPHINE SULFATE 2 MG/ML VIAL IVPUSH ONE (00:10)
[2020-09-22] MEDS: HEPARIN NA (PORCINE) 5,000 UNITS/ML 1ML VIAL SQ SCH ×3 (05:37→21:24)
[2020-09-22 10:18] LABS: BASO % 0.3 % (0-2.0); HEMATOCRIT 33.8 % (35.4-49); HEMOGLOBIN 11.3 GM/dL (11.7-16.9); MCH 28.8 pg (25.7-33.7); MCHC 33.5 g/dl (32.0-35.9); MONO % 8.3 % (3.8-10.2); NEUT % 81.4 % (42.8-82.8); PLATELET COUNT 260 K/MM3 (134-434); RBC 3.93 M/mm3 (4.00-5.60); RDW 14.1 % (11.9-15.9); WHITE BLOOD COUNT 11.9 K/mm3 (4.0-10.0)
[2020-09-22 10:32] LABS: POTASSIUM 3.2 mmol/L (3.5-5.1)
[2020-09-22] MEDS: ATENOLOL 25 MG TABLET (FP) PO SCH (10:37)
[2020-09-22] MEDS: CHOLECALCIFEROL (VIT D3) 1,000 UNIT (25 MCG) TABLET PO SCH (10:37)
[2020-09-22 10:38] LABS: CALCIUM 8.6 mg/dL (8.5-10.1)
[2020-09-22] MEDS: PIPERACILLIN/TAZOB 3.375 GM 3.375 GM in DEXTROSE 5%-WATER - 50 ML IVPB SCH (10:38)
[2020-09-22 10:39] LABS: ALBUMIN 2.1 g/dl (3.4-5.0); BLOOD UREA NITROGEN 45.7 mg/dL (7-18)
[2020-09-22 10:42] LABS: BILIRUBIN,TOTAL 0.7 mg/dL (0.2-1)
[2020-09-22 10:43] LABS: TOT PROT 6.5 g/dl (6.4-8.2)
[2020-09-22] MEDS ORDERED: POTASSIUM CHLORIDE TABS 20 MEQ TABLET.ER (FP) PO ONE (14:00)
[2020-09-22] MEDS: oxyCODONE HCL 5 MG TABLET PO PRN ×2 (15:11→21:23)
[2020-09-22] MEDS: DOCUSATE SODIUM 100 MG CAPSULE (FP) PO SCH ×2 (15:14→21:24)
[2020-09-22] MEDS: PIPERACILLIN/TAZOB 2.25 GM 2.25 GM in DEXTROSE 5%-WATER - 50 ML IVPB SCH (18:40)
[2020-09-22] MEDS: METOCLOPRAMIDE HCL INJECTION 10 MG/2 ML VIAL IVPUSH PRN (18:41)
[2020-09-23] MEDS: PIPERACILLIN/TAZOB 2.25 GM 2.25 GM in DEXTROSE 5%-WATER - 50 ML IVPB SCH ×3 (02:32→17:31)
[2020-09-23] MEDS: oxyCODONE HCL 5 MG TABLET PO PRN ×3 (03:04→18:24)
[2020-09-23] MEDS: HEPARIN NA (PORCINE) 5,000 UNITS/ML 1ML VIAL SQ SCH ×3 (07:09→22:30)
[2020-09-23] MEDS: DOCUSATE SODIUM 100 MG CAPSULE (FP) PO SCH ×3 (07:10→21:32)
[2020-09-23 08:58] LABS: POTASSIUM 3.1 mmol/L (3.5-5.1)
[2020-09-23 09:05] LABS: PHOSPHOROUS 4.3 mg/dL (2.5-4.9)
[2020-09-23 09:06] LABS: BLOOD UREA NITROGEN 42.5 mg/dL (7-18)
[2020-09-23 09:07] LABS: BILIRUBIN,TOTAL 0.5 mg/dL (0.2-1); TOT PROT 6.4 g/dl (6.4-8.2)
[2020-09-23 09:08] LABS: CALCIUM 8.2 mg/dL (8.5-10.1)
[2020-09-23 09:09] LABS: CREATININE 3.9 mg/dL (0.55-1.3); MAGNESIUM 2.6 mg/dL (1.8-2.4)
[2020-09-23 09:18] LABS: BASO % 0.3 % (0-2.0); EOS % 1.5 % (0-4.5); HEMATOCRIT 32.3 % (35.4-49); LYMPH % 8.6 % (8-40); MCH 28.5 pg (25.7-33.7); MCHC 33.9 g/dl (32.0-35.9); MEAN CELL VOLUME 84.2 fl (80-96); MEAN PLT VOLUME 7.5 fl (7.5-11.1); MONO % 9.7 % (3.8-10.2); NEUT % 79.9 % (42.8-82.8); PLATELET COUNT 272 K/MM3 (134-434); RBC 3.84 M/mm3 (4.00-5.60); RDW 13.8 % (11.9-15.9); WHITE BLOOD COUNT 12.1 K/mm3 (4.0-10.0)
[2020-09-23] MEDS ORDERED: POTASSIUM CHLORIDE TABS 20 MEQ TABLET.ER (FP) PO ONE (10:59)
[2020-09-23] MEDS: ATENOLOL 25 MG TABLET (FP) PO SCH (11:27)
[2020-09-23] MEDS: CHOLECALCIFEROL (VIT D3) 1,000 UNIT (25 MCG) TABLET PO SCH (11:27)
[2020-09-23] MEDS: KCL 10 MEQ IVPB 10 MEQ/100 ML INFUS.BAG IVPB SCH ×2 (14:05→15:21)
[2020-09-23] MEDS ORDERED: POTASSIUM CHLORIDE 10 MEQ in SODIUM CHLORIDE 1,000 ML IV SCH (16:00)
[2020-09-23] MEDS ORDERED: PIPERACILLIN/TAZOBACTAM 2.25 GM VIAL IVPB ONE (17:30)
[2020-09-23] MEDS ORDERED: DEXTROSE 5%-WATER - 50 ML IVPB ONE (17:30)
[2020-09-23] MEDS ORDERED: guaiFENesin 200 MG/10 ML 10 ML UNIT-DOSE CUPS PO PRN (20:21)
[2020-09-23] MEDS ORDERED: ACETAMINOPHEN 325 MG TABLET (FP) PO PRN (20:21)
[2020-09-24] MEDS: PIPERACILLIN/TAZOB 2.25 GM 2.25 GM in DEXTROSE 5%-WATER - 50 ML IVPB SCH ×3 (01:14→18:30)
[2020-09-24] MEDS: DOCUSATE SODIUM 100 MG CAPSULE (FP) PO SCH ×3 (06:27→21:57)
[2020-09-24] MEDS: HEPARIN NA (PORCINE) 5,000 UNITS/ML 1ML VIAL SQ SCH ×3 (06:27→21:57)
[2020-09-24 09:10] LABS: BASO % 0.4 % (0-2.0); EOS % 2.4 % (0-4.5); HEMATOCRIT 33.4 % (35.4-49); HEMOGLOBIN 11.1 GM/dL (11.7-16.9); LYMPH % 10.5 % (8-40); MCH 28.5 pg (25.7-33.7); MCHC 33.2 g/dl (32.0-35.9); MEAN CELL VOLUME 85.9 fl (80-96); MEAN PLT VOLUME 7.6 fl (7.5-11.1); MONO % 10.3 % (3.8-10.2); NEUT % 76.4 % (42.8-82.8); PLATELET COUNT 272 K/MM3 (134-434); RBC 3.89 M/mm3 (4.00-5.60); WHITE BLOOD COUNT 11.2 K/mm3 (4.0-10.0)
[2020-09-24 09:30] LABS: POTASSIUM 3.4 mmol/L (3.5-5.1)
[2020-09-24 09:32] LABS: CALCIUM 8.5 mg/dL (8.5-10.1)
[2020-09-24 09:33] LABS: ALBUMIN 2.1 g/dl (3.4-5.0); BLOOD UREA NITROGEN 37.6 mg/dL (7-18); MAGNESIUM 2.3 mg/dL (1.8-2.4)
[2020-09-24 09:36] LABS: CREATININE 3.4 mg/dL (0.55-1.3); PHOSPHOROUS 4.1 mg/dL (2.5-4.9)
[2020-09-24 09:37] LABS: BILIRUBIN,TOTAL 0.6 mg/dL (0.2-1); TOT PROT 6.5 g/dl (6.4-8.2)
[2020-09-24] MEDS ORDERED: DEXTROSE 5%-WATER - 50 ML IVPB ONE ×2 (10:10→17:19)
[2020-09-24] MEDS ORDERED: PIPERACILLIN/TAZOBACTAM 2.25 GM VIAL IVPB ONE ×2 (10:10→17:19)
[2020-09-24] MEDS: CHOLECALCIFEROL (VIT D3) 1,000 UNIT (25 MCG) TABLET PO SCH (10:36)
[2020-09-24] MEDS: ATENOLOL 25 MG TABLET (FP) PO SCH (10:36)
[2020-09-24] MEDS ORDERED: POTASSIUM CHLORIDE TABS 20 MEQ TABLET.ER (FP) PO ONE (11:17)
[2020-09-24 11:38] LABS: ANISOCYTOSIS 0; MACROCYTOSIS 0; PLATELET ESTIMATE NORMAL
[2020-09-24] MEDS: oxyCODONE HCL 5 MG TABLET PO PRN (18:59)
[2020-09-25] MEDS ORDERED: PIPERACILLIN/TAZOBACTAM 2.25 GM VIAL IVPB ONE ×3 (02:23→17:10)
[2020-09-25] MEDS ORDERED: DEXTROSE 5%-WATER - 50 ML IVPB ONE ×3 (02:23→17:11)
[2020-09-25] MEDS: PIPERACILLIN/TAZOB 2.25 GM 2.25 GM in DEXTROSE 5%-WATER - 50 ML IVPB SCH ×3 (02:28→17:38)
[2020-09-25] MEDS: DOCUSATE SODIUM 100 MG CAPSULE (FP) PO SCH ×3 (06:23→22:00)
[2020-09-25] MEDS: HEPARIN NA (PORCINE) 5,000 UNITS/ML 1ML VIAL SQ SCH ×3 (06:23→22:21)
[2020-09-25 08:50] LABS: BASO % 0.5 % (0-2.0); HEMOGLOBIN 11.4 GM/dL (11.7-16.9); LYMPH % 12.1 % (8-40); MCH 28.9 pg (25.7-33.7); MCHC 33.6 g/dl (32.0-35.9); MEAN CELL VOLUME 85.8 fl (80-96); MEAN PLT VOLUME 7.4 fl (7.5-11.1); MONO % 9.8 % (3.8-10.2); NEUT % 74.6 % (42.8-82.8); PLATELET COUNT 299 K/MM3 (134-434); RBC 3.96 M/mm3 (4.00-5.60); RDW 14.1 % (11.9-15.9); WHITE BLOOD COUNT 10.8 K/mm3 (4.0-10.0)
[2020-09-25 08:57] LABS: POTASSIUM 3.7 mmol/L (3.5-5.1)
[2020-09-25 09:02] LABS: ALBUMIN 2.1 g/dl (3.4-5.0); MAGNESIUM 2.1 mg/dL (1.8-2.4)
[2020-09-25 09:04] LABS: CALCIUM 8.2 mg/dL (8.5-10.1); CREATININE 3.6 mg/dL (0.55-1.3)
[2020-09-25 09:05] LABS: BLOOD UREA NITROGEN 34.9 mg/dL (7-18); PHOSPHOROUS 3.9 mg/dL (2.5-4.9)
[2020-09-25 09:06] LABS: BILIRUBIN,TOTAL 0.5 mg/dL (0.2-1); TOT PROT 6.9 g/dl (6.4-8.2)
[2020-09-25 10:26] LABS: ANISOCYTOSIS 1+; MACROCYTOSIS 0; PLATELET ESTIMATE NORMAL
[2020-09-25] MEDS: CHOLECALCIFEROL (VIT D3) 1,000 UNIT (25 MCG) TABLET PO SCH (11:11)
[2020-09-25] MEDS: ATENOLOL 25 MG TABLET (FP) PO SCH (11:12)
[2020-09-25] MEDS ORDERED: ALTEPLASE 2 MG VIAL IX SCH (13:30)
[2020-09-25] MEDS ORDERED: oxyCODONE HCL 5 MG TABLET PO ONE (15:44)
[2020-09-25] MEDS ORDERED: MORPHINE SULFATE 2 MG/ML VIAL IVPUSH ONE ×2 (16:16→18:59)
[2020-09-25] MEDS ORDERED: SODIUM CHLORIDE 0.45% 1,000 ML IV SCH (16:45)
[2020-09-26] MEDS ORDERED: PIPERACILLIN/TAZOBACTAM 2.25 GM VIAL IVPB ONE ×3 (01:40→18:00)
[2020-09-26] MEDS ORDERED: DEXTROSE 5%-WATER - 50 ML IVPB ONE ×3 (01:40→18:01)
[2020-09-26] MEDS: PIPERACILLIN/TAZOB 2.25 GM 2.25 GM in DEXTROSE 5%-WATER - 50 ML IVPB SCH ×3 (02:35→18:07)
[2020-09-26] MEDS ORDERED: oxyCODONE HCL 5 MG TABLET PO PRN (06:24)
[2020-09-26] MEDS ORDERED: PT OWN MED DRAWER 7, Y5N ONE (06:32)
[2020-09-26] MEDS: DOCUSATE SODIUM 100 MG CAPSULE (FP) PO SCH ×3 (06:33→23:11)
[2020-09-26] MEDS: HEPARIN NA (PORCINE) 5,000 UNITS/ML 1ML VIAL SQ SCH ×3 (06:34→23:20)
[2020-09-26 09:33] LABS: BASO % 0.5 % (0-2.0); EOS % 1.8 % (0-4.5); HEMATOCRIT 35.9 % (35.4-49); HEMOGLOBIN 11.9 GM/dL (11.7-16.9); LYMPH % 9.7 % (8-40); MCH 28.4 pg (25.7-33.7); MCHC 33.3 g/dl (32.0-35.9); MEAN CELL VOLUME 85.5 fl (80-96); MEAN PLT VOLUME 7.3 fl (7.5-11.1); MONO % 7.1 % (3.8-10.2); NEUT % 80.9 % (42.8-82.8); PLATELET COUNT 300 K/MM3 (134-434); RDW 14.1 % (11.9-15.9); WHITE BLOOD COUNT 13.8 K/mm3 (4.0-10.0)
[2020-09-26] MEDS: ATENOLOL 25 MG TABLET (FP) PO SCH (09:46)
[2020-09-26] MEDS: CHOLECALCIFEROL (VIT D3) 1,000 UNIT (25 MCG) TABLET PO SCH (09:46)
[2020-09-26 09:59] LABS: POTASSIUM 3.7 mmol/L (3.5-5.1)
[2020-09-26 10:12] LABS: ALBUMIN 2.1 g/dl (3.4-5.0); BLOOD UREA NITROGEN 29.6 mg/dL (7-18); CALCIUM 8.6 mg/dL (8.5-10.1)
[2020-09-26 10:15] LABS: CREATININE 3.1 mg/dL (0.55-1.3)
[2020-09-26 10:17] LABS: TOT PROT 6.6 g/dl (6.4-8.2)
[2020-09-26] MEDS ORDERED: oxyCODONE HCL 5 MG TABLET PO ONE (13:34)
[2020-09-26] MEDS ORDERED: MORPHINE SULFATE 2 MG/ML VIAL IVPUSH ONE (13:36)
[2020-09-26] MEDS: MORPHINE SULFATE 2 MG/ML VIAL IVPUSH PRN (23:17)
[2020-09-27] MEDS ORDERED: DEXTROSE 5%-WATER - 50 ML IVPB ONE ×4 (02:25→17:58)
[2020-09-27] MEDS ORDERED: PIPERACILLIN/TAZOBACTAM 2.25 GM VIAL IVPB ONE ×4 (02:25→17:58)
[2020-09-27] MEDS: PIPERACILLIN/TAZOB 2.25 GM 2.25 GM in DEXTROSE 5%-WATER - 50 ML IVPB SCH ×3 (02:27→17:58)
[2020-09-27] MEDS: DOCUSATE SODIUM 100 MG CAPSULE (FP) PO SCH ×3 (07:01→21:51)
[2020-09-27] MEDS: HEPARIN NA (PORCINE) 5,000 UNITS/ML 1ML VIAL SQ SCH ×3 (07:03→21:53)
[2020-09-27 09:26] LABS: BASO % 0.6 % (0-2.0); EOS % 2.6 % (0-4.5); HEMATOCRIT 31.9 % (35.4-49); HEMOGLOBIN 10.8 GM/dL (11.7-16.9); MCH 28.6 pg (25.7-33.7); MCHC 33.9 g/dl (32.0-35.9); MEAN CELL VOLUME 84.4 fl (80-96); MEAN PLT VOLUME 7.4 fl (7.5-11.1); NEUT % 75.8 % (42.8-82.8); PLATELET COUNT 282 K/MM3 (134-434); RBC 3.78 M/mm3 (4.00-5.60); RDW 13.9 % (11.9-15.9); WHITE BLOOD COUNT 11.5 K/mm3 (4.0-10.0)
[2020-09-27] MEDS: ATENOLOL 25 MG TABLET (FP) PO SCH (09:28)
[2020-09-27] MEDS: CHOLECALCIFEROL (VIT D3) 1,000 UNIT (25 MCG) TABLET PO SCH (09:28)
[2020-09-27] MEDS: MORPHINE SULFATE 2 MG/ML VIAL IVPUSH PRN ×2 (09:32→18:19)
[2020-09-27 09:49] LABS: POTASSIUM 3.6 mmol/L (3.5-5.1)
[2020-09-27 10:38] LABS: CALCIUM 8.6 mg/dL (8.5-10.1)
[2020-09-27 10:42] LABS: CREATININE 2.8 mg/dL (0.55-1.3)
[2020-09-27 10:44] LABS: BLOOD UREA NITROGEN 25.1 mg/dL (7-18); PHOSPHOROUS 4.4 mg/dL (2.5-4.9)
[2020-09-27 10:45] LABS: TOT PROT 6.3 g/dl (6.4-8.2)
[2020-09-27 10:46] LABS: BILIRUBIN,TOTAL 0.5 mg/dL (0.2-1)
[2020-09-27] MEDS ORDERED: MORPHINE SULFATE 2 MG/ML VIAL IVPUSH ONE (12:58)
[2020-09-27] MEDS ORDERED: oxyCODONE HCL 5 MG TABLET PO ONE (13:32)
[2020-09-27] MEDS: ALTEPLASE 2 MG VIAL IVPB ONE ×2 (14:44→14:46)
[2020-09-28] MEDS: MORPHINE SULFATE 2 MG/ML VIAL IVPUSH PRN ×4 (00:04→17:48)
[2020-09-28] MEDS ORDERED: PIPERACILLIN/TAZOBACTAM 2.25 GM VIAL IVPB ONE ×3 (02:22→17:23)
[2020-09-28] MEDS ORDERED: DEXTROSE 5%-WATER - 50 ML IVPB ONE ×3 (02:22→17:23)
[2020-09-28] MEDS: PIPERACILLIN/TAZOB 2.25 GM 2.25 GM in DEXTROSE 5%-WATER - 50 ML IVPB SCH ×3 (02:29→17:48)
[2020-09-28] MEDS: DOCUSATE SODIUM 100 MG CAPSULE (FP) PO SCH ×3 (05:31→22:05)
[2020-09-28] MEDS: HEPARIN NA (PORCINE) 5,000 UNITS/ML 1ML VIAL SQ SCH ×3 (06:11→22:07)
[2020-09-28] MEDS: ATENOLOL 25 MG TABLET (FP) PO SCH (09:34)
[2020-09-28] MEDS: CHOLECALCIFEROL (VIT D3) 1,000 UNIT (25 MCG) TABLET PO SCH (09:34)
[2020-09-28 09:40] LABS: BASO % 0.6 % (0-2.0); EOS % 2.9 % (0-4.5); HEMATOCRIT 32.2 % (35.4-49); HEMOGLOBIN 10.8 GM/dL (11.7-16.9); LYMPH % 11.7 % (8-40); MCH 28.5 pg (25.7-33.7); MCHC 33.7 g/dl (32.0-35.9); MEAN CELL VOLUME 84.6 fl (80-96); MEAN PLT VOLUME 7.7 fl (7.5-11.1); MONO % 8.3 % (3.8-10.2); NEUT % 76.5 % (42.8-82.8); PLATELET COUNT 296 K/MM3 (134-434); RDW 13.9 % (11.9-15.9); WHITE BLOOD COUNT 11.4 K/mm3 (4.0-10.0)
[2020-09-28 09:57] LABS: POTASSIUM 3.4 mmol/L (3.5-5.1)
[2020-09-28 10:01] LABS: MAGNESIUM 1.7 mg/dL (1.8-2.4)
[2020-09-28 10:02] LABS: ALBUMIN 2.1 g/dl (3.4-5.0); BLOOD UREA NITROGEN 22.6 mg/dL (7-18)
[2020-09-28 10:03] LABS: CALCIUM 8.4 mg/dL (8.5-10.1)
[2020-09-28 10:04] LABS: CREATININE 2.7 mg/dL (0.55-1.3); PHOSPHOROUS 4.6 mg/dL (2.5-4.9)
[2020-09-28 10:06] LABS: BILIRUBIN,TOTAL 0.8 mg/dL (0.2-1); TOT PROT 6.7 g/dl (6.4-8.2)
[2020-09-28] MEDS ORDERED: POTASSIUM CHLORIDE TABS 20 MEQ TABLET.ER (FP) PO ONE (14:36)
[2020-09-28] MEDS ORDERED: oxyCODONE HCL 5 MG TABLET PO ONE (14:36)
[2020-09-29] MEDS ORDERED: DEXTROSE 5%-WATER - 50 ML IVPB ONE ×3 (01:49→18:53)
[2020-09-29] MEDS ORDERED: PIPERACILLIN/TAZOBACTAM 2.25 GM VIAL IVPB ONE ×3 (01:49→18:53)
[2020-09-29] MEDS: PIPERACILLIN/TAZOB 2.25 GM 2.25 GM in DEXTROSE 5%-WATER - 50 ML IVPB SCH ×3 (01:50→19:09)
[2020-09-29] MEDS: DOCUSATE SODIUM 100 MG CAPSULE (FP) PO SCH ×3 (06:27→21:35)
[2020-09-29] MEDS: HEPARIN NA (PORCINE) 5,000 UNITS/ML 1ML VIAL SQ SCH ×3 (06:27→22:41)
[2020-09-29 09:06] LABS: BASO % 0.6 % (0-2.0); EOS % 3.6 % (0-4.5); HEMATOCRIT 33.5 % (35.4-49); HEMOGLOBIN 10.9 GM/dL (11.7-16.9); LYMPH % 12.4 % (8-40); MCHC 32.6 g/dl (32.0-35.9); MEAN CELL VOLUME 85.7 fl (80-96); MEAN PLT VOLUME 7.5 fl (7.5-11.1); MONO % 10.1 % (3.8-10.2); NEUT % 73.3 % (42.8-82.8); PLATELET COUNT 312 K/MM3 (134-434); RBC 3.91 M/mm3 (4.00-5.60); RDW 14.1 % (11.9-15.9); WHITE BLOOD COUNT 8.8 K/mm3 (4.0-10.0)
[2020-09-29 09:40] LABS: POTASSIUM 3.4 mmol/L (3.5-5.1)
[2020-09-29 09:47] LABS: ALBUMIN 2.3 g/dl (3.4-5.0); BLOOD UREA NITROGEN 20.9 mg/dL (7-18); CALCIUM 8.8 mg/dL (8.5-10.1)
[2020-09-29 09:52] LABS: CREATININE 2.6 mg/dL (0.55-1.3)
[2020-09-29 09:53] LABS: BILIRUBIN,TOTAL 0.4 mg/dL (0.2-1); TOT PROT 7.3 g/dl (6.4-8.2)
[2020-09-29] MEDS: CHOLECALCIFEROL (VIT D3) 1,000 UNIT (25 MCG) TABLET PO SCH (10:14)
[2020-09-29] MEDS: ATENOLOL 25 MG TABLET (FP) PO SCH (10:14)
[2020-09-29] MEDS ORDERED: POTASSIUM CHLORIDE TABS 20 MEQ TABLET.ER (FP) PO ONE ×2 (12:28→19:00)
[2020-09-29] MEDS ORDERED: oxyCODONE HCL 5 MG TABLET PO ONE (21:03)
[2020-09-29] MEDS ORDERED: LIDOCAINE 5% TOPICAL PATCH TP ONE (21:07)
[2020-09-29] MEDS: LIDOCAINE PATCH REMOVAL MC SCH (23:07)
[2020-09-30] MEDS ORDERED: MELATONIN 5 MG TABLETS PO ONE (00:31)
[2020-09-30] MEDS ORDERED: DEXTROSE 5%-WATER - 50 ML IVPB ONE ×2 (01:31→09:40)
[2020-09-30] MEDS ORDERED: PIPERACILLIN/TAZOBACTAM 2.25 GM VIAL IVPB ONE ×2 (01:31→09:37)
[2020-09-30] MEDS: PIPERACILLIN/TAZOB 2.25 GM 2.25 GM in DEXTROSE 5%-WATER - 50 ML IVPB SCH ×2 (01:37→09:41)
[2020-09-30] MEDS: DOCUSATE SODIUM 100 MG CAPSULE (FP) PO SCH (06:05)
[2020-09-30] MEDS: HEPARIN NA (PORCINE) 5,000 UNITS/ML 1ML VIAL SQ SCH (06:07)
[2020-09-30] MEDS: METOCLOPRAMIDE HCL INJECTION 10 MG/2 ML VIAL IVPUSH PRN (08:18)
[2020-09-30] MEDS: CHOLECALCIFEROL (VIT D3) 1,000 UNIT (25 MCG) TABLET PO SCH (09:41)
[2020-09-30] MEDS: ATENOLOL 25 MG TABLET (FP) PO SCH (09:41)
[2020-09-30] MEDS: LIDOCAINE PATCH REMOVAL MC SCH (09:43)
[2020-09-30 10:04] VITALS: BP 144/72; PULSE 66; TEMP 97.9
[2020-09-30 10:20] LABS: BASO % 0.8 % (0-2.0); EOS % 2.5 % (0-4.5); LYMPH % 13.1 % (8-40); MCH 28.3 pg (25.7-33.7); MCHC 33.3 g/dl (32.0-35.9); MEAN CELL VOLUME 85.1 fl (80-96); MEAN PLT VOLUME 7.5 fl (7.5-11.1); MONO % 6.5 % (3.8-10.2); NEUT % 77.1 % (42.8-82.8); PLATELET COUNT 363 K/MM3 (134-434); RBC 3.88 M/mm3 (4.00-5.60); RDW 13.8 % (11.9-15.9); WHITE BLOOD COUNT 9.2 K/mm3 (4.0-10.0)
[2020-09-30 10:38] LABS: POTASSIUM 3.6 mmol/L (3.5-5.1)
[2020-09-30 10:41] LABS: ALBUMIN 2.5 g/dl (3.4-5.0); BLOOD UREA NITROGEN 20.3 mg/dL (7-18); CALCIUM 9.1 mg/dL (8.5-10.1)
[2020-09-30 10:45] LABS: CREATININE 2.4 mg/dL (0.55-1.3); PHOSPHOROUS 3.4 mg/dL (2.5-4.9)
[2020-09-30 10:46] LABS: BILIRUBIN,TOTAL 0.6 mg/dL (0.2-1); MAGNESIUM 1.9 mg/dL (1.8-2.4); TOT PROT 7.9 g/dl (6.4-8.2)
== END 2020-09-30 15:58 | disposition home or self-care (01) | DRG 143 ==
LOC: JER 21:01 → JERBED 09-17 01:51 → J5WEST-2 09-17 05:42 → J6S 09-23 16:07
PROVIDERS: ADMIT Hospitalist
PROC: 0W9930Z Drainage of Right Pleural Cavity with Drainage Device, Percutaneous Approach (ICD-10-PCS; principal; 2020-09-18)
PROC: 3E0L3GC Introduction of Other Therapeutic Substance into Pleural Cavity, Percutaneous Approach (ICD-10-PCS; 2020-09-25)
DX: J90 Pleural effusion, not elsewhere classified (principal); J18.9 Pneumonia, unspecified organism; J86.9 Pyothorax without fistula; R07.89 Other chest pain; I10 Essential (primary) hypertension; B19.20 Unspecified viral hepatitis C without hepatic coma; R00.0 Tachycardia, unspecified; J44.9 Chronic obstructive pulmonary disease, unspecified; I44.4 Left anterior fascicular block; R68.0 Hypothermia, not associated with low environmental temperature; K82.4 Cholesterolosis of gallbladder; N17.9 Acute kidney failure, unspecified; E87.70 Fluid overload, unspecified; F17.210 Nicotine dependence, cigarettes, uncomplicated; E87.6 Hypokalemia; Z79.1 Long term (current) use of non-steroidal anti-inflammatories (NSAID); N14.1 Nephropathy induced by other drugs, medicaments and biological substances; T50.995A Adverse effect of other drugs, medicaments and biological substances, initial encounter
CPT/HCPCS: 32557; 36415; 71045-TC-FY; 71046-TC-FY; 71250-TC; 71275-TC; 76705-TC; 76775-TC; 80048; 80053; 80307; 81003; 82042; 82150; 82436; 82465; 82550; 82565; 82728; 82945; 83615; 83735; 83986; 84100; 84133; 84157; 84300; 84478; 84484; 84540; 85025; 85379; 85610; 85651; 86140; 87040; 87070; 87075; 87086; 87102; 87116; 87205; 87206; 87210; 87804; 87899; 88108; 88305-TC; 93005; 93010; 93970-TC; 94010; 99285-25; C9803; G0480; J0131; J1644; J2997; U0003

== ENCOUNTER 2022-08-03 16:00 | Inpatient (IN) | payer OTHER ==
[2022-08-03 16:28] VITALS: BMI 32.8
[2022-08-03 18:01] LABS: BASO % 0.6 % (0-2.0); HEMATOCRIT 39.7 % (35.4-49); LYMPH % 5.5 % (8-40); MCH 28.8 pg (25.7-33.7); MCHC 32.7 g/dl (32.0-35.9); MEAN CELL VOLUME 88.2 fl (80-96); MONO % 2.2 % (3.8-10.2); NEUT % 91.7 % (42.8-82.8); PLATELET COUNT 220 10^3/uL (134-434); RDW 14.7 % (11.9-15.9); WHITE BLOOD COUNT 19.4 K/mm3 (4.0-10.0)
[2022-08-03 18:29] LABS: CHLORIDE 96 mmol/L (98-107); SODIUM 135 mmol/L (136-145)
[2022-08-03 18:32] LABS: CALCIUM 8.8 mg/dL (8.5-10.1)
[2022-08-03 18:33] LABS: ALBUMIN 2.7 g/dl (3.4-5.0); BLOOD UREA NITROGEN 22.4 mg/dL (7-18); CO2 34 mmol/L (21-32); GLUCOSE,RANDOM 159 mg/dL (74-106)
[2022-08-03 18:36] LABS: CREATININE 1.2 mg/dL (0.55-1.3)
[2022-08-03 18:38] LABS: BILIRUBIN,TOTAL 0.7 mg/dL (0.2-1); TOT PROT 7.8 g/dl (6.4-8.2)
[2022-08-03 18:39] LABS: ALK PHOS 63 U/L (45-117)
[2022-08-03] MEDS ORDERED: CEFTRIAXONE 1,000 MG in DEXTROSE 5%-WATER - 50 ML IVPB ONE (18:41)
[2022-08-03 18:42] LABS: ANION GAP 5 MMOL/L (8-16); SGOT/AST 131 U/L (15-37); SGPT/ALT 37 U/L (13-61)
[2022-08-03] MEDS ORDERED: AZITHROMYCIN IVPB 500 MG in DEXTROSE 5%-WATER - 250 ML IVPB ONE (18:42)
[2022-08-03] MEDS ORDERED: CEFTRIAXONE 1 GM/50 ML BAG ONE (18:54)
[2022-08-03] MEDS ORDERED: AZITHROMYCIN IVPB 500 MG/250 ML BAG IVPB ONE (18:54)
[2022-08-03 20:22] LABS: BLOOD UREA NITROGEN 23.9 mg/dL (7-18)
[2022-08-03 20:25] LABS: CREATININE 1.1 mg/dL (0.55-1.3)
[2022-08-03] MEDS ORDERED: ALBUTEROL SO4 HFA INHALER IH PRN (21:35)
[2022-08-03] MEDS ORDERED: MONTELUKAST NA 10 MG TABLET PO SCH (22:00)
[2022-08-03] MEDS ORDERED: MONTELUKAST NA 10 MG TABLET ONE (22:12)
[2022-08-03] MEDS: BUDESONIDE/FORMETEROL FUMARATE 160/4.5 mcg INHALER IH SCH (22:23)
[2022-08-03] MEDS ORDERED: ALBUTEROL SO4 2.5/IPRATROPIUM 0.5 INH SOL 3 ML VIAL.NEB. NEB SCH (22:30)
[2022-08-03] MEDS ORDERED: ALBUTEROL SO4 2.5/IPRATROPIUM 0.5 INH SOL 3 ML VIAL.NEB. NEB ONE (23:39)
[2022-08-04 01:17] VITALS: RESP 20
[2022-08-04] MEDS: methylPREDNISolone NA SUCC 40 MG/1 ML VIAL IVPUSH SCH ×2 (01:56→09:39)
[2022-08-04] MEDS ORDERED: methaDONE HCL 40 MG DISPERSABLE TABLET PO SCH (07:00)
[2022-08-04] MEDS: ALBUTEROL SO4 2.5/IPRATROPIUM 0.5 INH SOL 3 ML VIAL.NEB. NEB SCH ×2 (07:48→11:08)
[2022-08-04] MEDS: ENOXAPARIN NA (PORCINE) 40 MG/0.4 ML DISP.SYRIN SQ SCH ×2 (09:39→09:51)
[2022-08-04] MEDS ORDERED: CEFTRIAXONE 1 GM in DEXTROSE 5%-WATER - 50 ML IVPB SCH (10:00)
[2022-08-04] MEDS ORDERED: PANTOPRAZOLE 40 MG TABLET PO SCH (10:00)
[2022-08-04] MEDS ORDERED: DOXYCYCLINE INJECTION 100 MG in DEXTROSE 5%-WATER 100 ML IVPB SCH (10:00)
[2022-08-04] MEDS ORDERED: FUROSEMIDE 20 MG TABLET (FP) PO SCH (10:00)
[2022-08-04 11:12] VITALS: PULSE 93
[2022-08-04 11:29] LABS: HEMATOCRIT 38.6 % (35.4-49); HEMOGLOBIN 12.6 GM/dL (11.7-16.9); MCH 28.9 pg (25.7-33.7); MCHC 32.7 g/dl (32.0-35.9); MEAN CELL VOLUME 88.3 fl (80-96); MEAN PLT VOLUME 8.9 fl (7.5-11.1); PLATELET COUNT 203 10^3/uL (134-434); RBC 4.37 M/mm3 (4.00-5.60); RDW 14.5 % (11.9-15.9); WHITE BLOOD COUNT 12.6 K/mm3 (4.0-10.0)
[2022-08-04 11:58] LABS: ANISOCYTOSIS 0; MACROCYTOSIS 1+; OVALOCYTE 1+
[2022-08-04 12:00] LABS: BLOOD UREA NITROGEN 23.5 mg/dL (7-18); MAGNESIUM 2.2 mg/dL (1.8-2.4); PHOSPHOROUS 2.4 mg/dL (2.5-4.9)
[2022-08-04 12:02] LABS: BILIRUBIN,TOTAL 0.4 mg/dL (0.2-1)
[2022-08-04 12:03] LABS: CREATININE 1.1 mg/dL (0.55-1.3)
[2022-08-04 12:24] VITALS: BP 126/65; TEMP 97.9
[2022-08-04] MEDS: BUDESONIDE/FORMETEROL FUMARATE 160/4.5 mcg INHALER IH SCH (12:27)
== END 2022-08-04 13:32 | disposition left against medical advice (07) | DRG 140 ==
LOC: JER 16:00 → JERBED 20:44 → J5S 08-04 00:30
PROVIDERS: ADMIT Internal Medicine; ATTEND Internal Medicine
DX: J44.1 Chronic obstructive pulmonary disease with (acute) exacerbation (principal); J18.9 Pneumonia, unspecified organism; F11.20 Opioid dependence, uncomplicated; I10 Essential (primary) hypertension; F17.210 Nicotine dependence, cigarettes, uncomplicated; B19.20 Unspecified viral hepatitis C without hepatic coma; K21.9 Gastro-esophageal reflux disease without esophagitis
CPT/HCPCS: 0241U-QW; 36415; 71045-TC-FY; 80048; 80053; 83735; 84100; 84484; 85025; 93005; 93010; 94761; 99285-25

== ENCOUNTER 2025-06-21 12:07 | Inpatient (IN) | payer OTHER ==
[2025-06-21] MEDS ORDERED: ALBUTEROL SO4 2.5/IPRATROPIUM 0.5 INH SOL 3 ML VIAL.NEB. NEB ONE (12:19)
[2025-06-21] MEDS ORDERED: MIDAZOLAM HCL 5 MG/1 ML Single Dose Vial ONE ×2 (12:31→12:51)
[2025-06-21] MEDS: ALBUTEROL SO4 2.5/IPRATROPIUM 0.5 INH SOL 3 ML VIAL.NEB. NEB ONE (12:43)
[2025-06-21] MEDS: MIDAZOLAM HCL 2 MG/2 ML SINGLE DOSE VIAL IVPUSH ONE ×4 (12:44→14:04)
[2025-06-21] MEDS: LORazepam 2 MG/ML SDV VIAL IM ONE (12:44)
[2025-06-21 12:46] LABS: ABSOLUTE IMMATURE GRANULOCYTES 0.03 x10^3/uL (0.0-0.031); BASOPHILS # 0.05 x10^3/uL (0.01-0.08); EOSINOPHIL % 3.7 % (0.8-7.0); EOSINOPHILS # 0.34 x10^3/uL (0.04-0.54); MCHC 32.5 g/dl (32.3-36.5); MEAN CELL VOLUME 89.7 fl (79.0-92.2); MEAN PLT VOLUME 11.9 fl (9.4-12.4); MONOCYTE # 0.67 x10^3/uL (0.30-0.82); MONOCYTE % 7.3 % (5.3-12.2); RDW 13.4 % (12.2-16.4)
[2025-06-21 13:12] LABS: GLUCOSE,RANDOM 145.0 mg/dL (74-106); TOT PROT 6.9 g/dl (6.4-8.2)
[2025-06-21 13:13] LABS: CO2 29.0 mmol/L (21-32)
[2025-06-21 13:15] LABS: ALK PHOS 68.0 U/L (40-150)
[2025-06-21 13:18] LABS: CREATININE 1.08 mg/dL (0.55-1.3); SGOT/AST 62.0 U/L (5-34); SGPT/ALT 17.0 U/L (0-55)
[2025-06-21] MEDS ORDERED: MIDAZOLAM HCL 2 MG/2 ML SINGLE DOSE VIAL ONE ×2 (13:18→14:01)
[2025-06-21] MEDS ORDERED: diazePAM CARPU-JECT 10 MG/2 ML DISP.SYRIN ONE (13:40)
[2025-06-21] MEDS: SODIUM CHLORIDE 0.9% 1000 ML INFUS.BAG IV ONE (13:43)
[2025-06-21] MEDS: diazePAM CARPU-JECT 10 MG/2 ML DISP.SYRIN IVPUSH ONE (13:48)
[2025-06-21] MEDS ORDERED: RAPID SEQUENCE INTUBATION KIT NR ONE (14:20)
[2025-06-21] MEDS ORDERED: ROCURONIUM BROMIDE 50 MG/5 ML VIAL ONE (14:22)
[2025-06-21] MEDS ORDERED: PROPOFOL 1,000,000 MCG/100 ML VIAL ONE (14:23)
[2025-06-21 14:53] LABS: BG HCT 42.0 % (35.4-49); VENOUS BASE EXCESS 1.8 mmol/L (-2-2); VENOUS O2 SATURATION 67.6 % (70-80); VENOUS PCO2 45.2 mmHg (38-52); VENOUS PH 7.396 (7.310-7.410)
[2025-06-21 14:58] LABS: URINE APPEARANCE CLEAR; URINE BILIRUBIN NEGATIVE (NEGATIVE); URINE COLOR YELLOW; URINE GLUCOSE (UA) NEGATIVE (NEGATIVE); URINE KETONE NEGATIVE (NEGATIVE); URINE LEUK ESTERASE NEGATIVE (NEGATIVE); URINE NITRITE NEGATIVE (NEGATIVE); URINE PROTEIN TRACE (NEGATIVE); URINE UROBILINOGEN 0.2 mg/dL (0.2-1.0)
[2025-06-21 15:02] LABS: COCAINE, UR NEGATIVE (NEGATIVE); PHENCYCLIDINE,URINE NEGATIVE (NEGATIVE)
[2025-06-21 15:03] LABS: METHADONE, UR POSITIVE (NEGATIVE); OPIATES, URI NEGATIVE (NEGATIVE); URINE AMPHETAMINES NEGATIVE (NEGATIVE); URINE BARBITURATES NEGATIVE (NEGATIVE); URINE BENZODIAZEPINES POSITIVE (NEGATIVE)
[2025-06-21] MEDS: ROCURONIUM BROMIDE 50 MG/5 ML VIAL IVPUSH ONE (15:10)
[2025-06-21] MEDS: PROPOFOL 200 MG/20 ML VIAL IVPUSH ONE (15:10)
[2025-06-21 15:14] LABS: LACTIC ACID 3.1 mmol/L (0.4-2.0)
[2025-06-21] MEDS: LACTATED RINGERS SOLUTION 1000 ML INFUS.BAG IV ONE (15:28)
[2025-06-21] MEDS: PROPOFOL 1,000,000 MCG/100 ML VIAL IVPB SCH ×2 (15:42→19:43)
[2025-06-21 15:55] LABS: ARTERIAL BLD GAS O2 SATURATION 94.6 % (95-98); ARTERIAL BLOOD GAS BASE EXCESS -3.6 mmol/L (-2-2); ARTERIAL BLOOD GAS PO2 91.9 mmHg (80-100); BG HCT 42.0 % (35.4-49)
[2025-06-21 15:58] LABS: ALLENS TEST POSITIVE
[2025-06-21 15:59] LABS: VENT MODE A/C; VENT RATE 14
[2025-06-21 16:00] LABS: ARTERIAL BLOOD GAS PCO2 74.40 mmHg (35-45)
[2025-06-21] MEDS ORDERED: FENTANYL NS IVPB 500 MCG/100 ML BAG IVPB ONE (17:00)
[2025-06-21] MEDS: FENTANYL NS IVPB 500 MCG/100 ML BAG IVPB SCH (17:27)
[2025-06-21 18:18] LABS: ARTERIAL BLD GAS O2 SATURATION 97.1 % (95-98); ARTERIAL BLOOD GAS BASE EXCESS 1.4 mmol/L (-2-2); ARTERIAL BLOOD GAS PCO2 58.90 mmHg (35-45); ARTERIAL BLOOD GAS PO2 102.5 mmHg (80-100); BG HCT 47.0 % (35.4-49)
[2025-06-21 18:22] LABS: ALLENS TEST POSITIVE
[2025-06-21 18:23] LABS: VENT MODE A/C
[2025-06-21 18:26] LABS: VENT RATE 18
[2025-06-21] MEDS: MUPIROCIN 2% TOPICAL OINTMENT FOR DECOLONIZATION NS SCH (21:44)
[2025-06-21] MEDS: CHLORHEXIDINE GLUCONATE 4% CLEANSER FOR DECOLONIZATION TP SCH (21:44)
[2025-06-22] MEDS: FENTANYL NS IVPB 500 MCG/100 ML BAG IVPB SCH (00:05)
[2025-06-22 07:05] LABS: ARTERIAL BLD GAS O2 SATURATION 99.0 % (95-98); ARTERIAL BLOOD GAS BASE EXCESS 4.3 mmol/L (-2-2); ARTERIAL BLOOD GAS PCO2 45.90 mmHg (35-45); ARTERIAL BLOOD GAS PO2 154.7 mmHg (80-100); BG HCT 45.0 % (35.4-49); O2 CONTENT 2.13 % vol
[2025-06-22 07:10] LABS: ALLENS TEST POSITIVE
[2025-06-22 07:11] LABS: VENT MODE A/C; VENT RATE 18
[2025-06-22 07:17] LABS: ABSOLUTE IMMATURE GRANULOCYTES 0.02 x10^3/uL (0.0-0.031); BASOPHILS # 0.02 x10^3/uL (0.01-0.08); EOSINOPHIL % 2.5 % (0.8-7.0); EOSINOPHILS # 0.16 x10^3/uL (0.04-0.54); MCHC 32.1 g/dl (32.3-36.5); MEAN CELL VOLUME 88.9 fl (79.0-92.2); MEAN PLT VOLUME 11.2 fl (9.4-12.4); MONOCYTE # 0.59 x10^3/uL (0.30-0.82); MONOCYTE % 9.2 % (5.3-12.2); RDW 13.6 % (12.2-16.4)
[2025-06-22 07:48] LABS: GLUCOSE,RANDOM 76.0 mg/dL (74-106)
[2025-06-22 07:49] LABS: TOT PROT 5.9 g/dl (6.4-8.2)
[2025-06-22 07:50] LABS: CO2 28.0 mmol/L (21-32)
[2025-06-22 07:52] LABS: ALK PHOS 55.0 U/L (40-150)
[2025-06-22 07:54] LABS: SGOT/AST 44.0 U/L (5-34); SGPT/ALT 12.0 U/L (0-55)
[2025-06-22 07:55] LABS: CREATININE 0.86 mg/dL (0.55-1.3)
[2025-06-22] MEDS: DEXMEDETOMIDINE PREMIX 400 MCG/100 ML BAG IVPB SCH (08:00)
[2025-06-22] MEDS ORDERED: PANTOPRAZOLE 40 MG TABLET PO SCH (10:00)
[2025-06-22] MEDS: PANTOPRAZOLE SODIUM 40 MG VIAL IVPUSH SCH (10:09)
[2025-06-22] MEDS: PIPERACILLIN/TAZOB 2.25 GM 2.25 GM in DEXTROSE 5%-WATER - 50 ML IVPB SCH (14:39)
[2025-06-22] MEDS: ALBUTEROL SO4 2.5/IPRATROPIUM 0.5 INH SOL 3 ML VIAL.NEB. NEB SCH (15:40)
[2025-06-22] MEDS: PROPOFOL 1,000,000 MCG/100 ML VIAL IVPB SCH (17:47)
[2025-06-22] MEDS ORDERED: PIPERACILLIN/TAZOB 2.25 GM 2.25 GM in DEXTROSE 5%-WATER - 50 ML IVPB SCH (18:00)
[2025-06-22] MEDS ORDERED: TERAZOSIN HCL 1 MG CAPSULE PO SCH (22:00)
[2025-06-23 07:01] LABS: GLUCOSE,RANDOM 103.0 mg/dL (74-106); TOT PROT 6.0 g/dl (6.4-8.2)
[2025-06-23 07:02] LABS: CO2 27.0 mmol/L (21-32)
[2025-06-23 07:03] LABS: ABSOLUTE IMMATURE GRANULOCYTES 0.01 x10^3/uL (0.0-0.031); BASOPHILS # 0.02 x10^3/uL (0.01-0.08); EOSINOPHIL % 4.1 % (0.8-7.0); EOSINOPHILS # 0.21 x10^3/uL (0.04-0.54); MCHC 31.9 g/dl (32.3-36.5); MEAN CELL VOLUME 88.8 fl (79.0-92.2); MEAN PLT VOLUME 11.2 fl (9.4-12.4); MONOCYTE # 0.52 x10^3/uL (0.30-0.82); MONOCYTE % 10.2 % (5.3-12.2); RDW 13.7 % (12.2-16.4)
[2025-06-23 07:04] LABS: ALK PHOS 59.0 U/L (40-150)
[2025-06-23 07:07] LABS: CREATININE 0.88 mg/dL (0.55-1.3); SGOT/AST 33.0 U/L (5-34); SGPT/ALT 11.0 U/L (0-55)
[2025-06-23] MEDS: DEXMEDETOMIDINE PREMIX 400 MCG/100 ML BAG IVPB SCH (07:30)
[2025-06-23] MEDS: ENOXAPARIN NA (PORCINE) 40 MG/0.4 ML DISP.SYRIN SQ SCH (09:29)
[2025-06-23] MEDS: FOLIC ACID 1 MG TABLET (FP) NGT SCH (09:29)
[2025-06-23] MEDS: FUROSEMIDE 40 MG/4 ML INJECTABLE VIAL IVPUSH SCH (09:29)
[2025-06-23] MEDS: THIAMINE HCL 200 MG/2 ML VIAL IVPB SCH (09:37)
[2025-06-23] MEDS: MULTIVIT-MINERALS ORAL LIQUID NGT SCH (10:24)
[2025-06-23] MEDS: methylPREDNISolone NA SUCC 40 MG/1 ML VIAL IVPUSH SCH (13:08)
[2025-06-23] MEDS: diazePAM CARPU-JECT 10 MG/2 ML DISP.SYRIN IVPUSH PRN (16:30)
[2025-06-24 06:45] LABS: ABSOLUTE IMMATURE GRANULOCYTES 0.06 x10^3/uL (0.0-0.031); BASOPHILS # 0.01 x10^3/uL (0.01-0.08); EOSINOPHIL % 0.0 % (0.8-7.0); EOSINOPHILS # 0.00 x10^3/uL (0.04-0.54); MCHC 32.6 g/dl (32.3-36.5); MEAN CELL VOLUME 85.7 fl (79.0-92.2); MEAN PLT VOLUME 11.0 fl (9.4-12.4); MONOCYTE # 0.56 x10^3/uL (0.30-0.82); MONOCYTE % 4.6 % (5.3-12.2); RDW 13.4 % (12.2-16.4)
[2025-06-24 06:55] LABS: GLUCOSE,RANDOM 136.0 mg/dL (74-106)
[2025-06-24 06:56] LABS: TOT PROT 6.6 g/dl (6.4-8.2)
[2025-06-24 06:57] LABS: CO2 28.0 mmol/L (21-32)
[2025-06-24 06:58] LABS: ALK PHOS 63.0 U/L (40-150)
[2025-06-24 07:01] LABS: CREATININE 1.02 mg/dL (0.55-1.3); SGOT/AST 23.0 U/L (5-34); SGPT/ALT 9.0 U/L (0-55)
[2025-06-24] MEDS: ACETAMINOPHEN 325 MG TABLET (FP) PO PRN (20:45)
[2025-06-25] MEDS: BENZOCAINE/MENTHOL 1 EACH LOZENGE MM PRN (02:16)
[2025-06-25] MEDS: ONDANSETRON 4 MG/2 ML VIAL IVPUSH PRN (02:16)
[2025-06-25 06:24] LABS: ABSOLUTE IMMATURE GRANULOCYTES 0.06 x10^3/uL (0.0-0.031); BASOPHILS # 0.03 x10^3/uL (0.01-0.08); EOSINOPHIL % 0.3 % (0.8-7.0); EOSINOPHILS # 0.04 x10^3/uL (0.04-0.54); MCHC 32.7 g/dl (32.3-36.5); MEAN CELL VOLUME 86.9 fl (79.0-92.2); MEAN PLT VOLUME 10.8 fl (9.4-12.4); MONOCYTE # 0.73 x10^3/uL (0.30-0.82); MONOCYTE % 6.0 % (5.3-12.2); RDW 13.8 % (12.2-16.4)
[2025-06-25 06:29] LABS: GLUCOSE,RANDOM 92.0 mg/dL (74-106); TOT PROT 7.2 g/dl (6.4-8.2)
[2025-06-25 06:30] LABS: CO2 29.0 mmol/L (21-32)
[2025-06-25 06:32] LABS: ALK PHOS 64.0 U/L (40-150)
[2025-06-25 06:35] LABS: CREATININE 1.03 mg/dL (0.55-1.3); SGOT/AST 39.0 U/L (5-34); SGPT/ALT 18.0 U/L (0-55)
[2025-06-25] MEDS: POTASSIUM CHLORIDE TABS 20 MEQ TABLET.ER (FP) PO ONE (10:28)
[2025-06-25] MEDS ORDERED: ACETAMINOPHEN 1000 MG/100 ML BAG IVPB PRN (11:19)
[2025-06-25] MEDS: SODIUM CHLORIDE 1,000 ML IV STA (14:19)
[2025-06-25] MEDS: DEXTROSE 5%-WATER - 1,000 ML IV SCH (15:40)
[2025-06-25] MEDS: ALBUTEROL SO4 2.5/IPRATROPIUM 0.5 INH SOL 3 ML VIAL.NEB. NEB SCH (15:45)
[2025-06-25] MEDS ORDERED: BENZOCAINE/MENTHOL 1 EACH LOZENGE MM PRN (15:47)
[2025-06-25] MEDS ORDERED: ONDANSETRON 4 MG/2 ML VIAL IVPUSH PRN (15:47)
[2025-06-25 15:59] VITALS: BMI 28.8
[2025-06-25] MEDS: DOCUSATE SODIUM 100 MG CAPSULE (FP) PO ONE (20:59)
[2025-06-25] MEDS: SENNOSIDES/DOCUSATE COMBO (SENNA PLUS) TABLET (UD) PO ONE (21:04)
[2025-06-26] MEDS: diazePAM CARPU-JECT 10 MG/2 ML DISP.SYRIN IVPUSH PRN (06:21)
[2025-06-26] MEDS: PANTOPRAZOLE SODIUM 40 MG VIAL IVPUSH SCH (09:12)
[2025-06-26] MEDS: THIAMINE HCL 200 MG/2 ML VIAL IVPB SCH (09:12)
[2025-06-26] MEDS: ENOXAPARIN NA (PORCINE) 40 MG/0.4 ML DISP.SYRIN SQ SCH (09:12)
[2025-06-26] MEDS: FOLIC ACID 1 MG TABLET (FP) NGT SCH (09:13)
[2025-06-26 09:33] LABS: MCHC 31.9 g/dl (32.3-36.5); MEAN CELL VOLUME 88.6 fl (79.0-92.2); MEAN PLT VOLUME 10.3 fl (9.4-12.4); RDW 13.6 % (12.2-16.4)
[2025-06-26 10:02] LABS: GLUCOSE,RANDOM 128.0 mg/dL (74-106); TOT PROT 7.7 g/dl (6.4-8.2)
[2025-06-26 10:03] LABS: CO2 31.0 mmol/L (21-32)
[2025-06-26 10:05] LABS: ALK PHOS 67.0 U/L (40-150)
[2025-06-26 10:08] LABS: CREATININE 1.11 mg/dL (0.55-1.3); SGOT/AST 32.0 U/L (5-34); SGPT/ALT 19.0 U/L (0-55)
[2025-06-26] MEDS: POTASSIUM CHLORIDE ORAL LIQUID 20 MEQ/15 ML PO ONE (11:40)
[2025-06-26] MEDS: diazePAM CARPU-JECT 10 MG/2 ML DISP.SYRIN IVPUSH ONE (11:41)
[2025-06-26] MEDS: SODIUM CHLORIDE 0.9% 500 ML INFUS.BAG IV ONE (13:43)
[2025-06-26] MEDS: methylPREDNISolone NA SUCC 40 MG/1 ML VIAL IVPUSH ONE (13:43)
[2025-06-26] MEDS: TAMSULOSIN HCL 0.4 MG CAP PO SCH (14:04)
[2025-06-26] MEDS: ALBUTEROL SO4 2.5/IPRATROPIUM 0.5 INH SOL 3 ML VIAL.NEB. NEB SCH (14:48)
[2025-06-26] MEDS: MULTIVIT-MINERALS ORAL LIQUID NGT SCH (17:41)
[2025-06-27 06:13] VITALS: RESP 18
[2025-06-27 09:10] LABS: MCHC 32.2 g/dl (32.3-36.5); MEAN CELL VOLUME 86.9 fl (79.0-92.2); MEAN PLT VOLUME 9.9 fl (9.4-12.4); RDW 13.1 % (12.2-16.4)
[2025-06-27] MEDS: methylPREDNISolone NA SUCC 40 MG/1 ML VIAL IVPUSH SCH (09:29)
[2025-06-27 09:33] LABS: GLUCOSE,RANDOM 120.0 mg/dL (74-106); TOT PROT 7.6 g/dl (6.4-8.2)
[2025-06-27 09:34] LABS: CO2 31.0 mmol/L (21-32)
[2025-06-27 09:35] LABS: ALK PHOS 60.0 U/L (40-150)
[2025-06-27 09:38] LABS: CREATININE 0.98 mg/dL (0.55-1.3); SGOT/AST 24.0 U/L (5-34); SGPT/ALT 16.0 U/L (0-55)
[2025-06-27 15:38] VITALS: BP 120/75; PULSE 80; TEMP 98.3
== END 2025-06-27 18:38 | disposition home or self-care (01) | DRG 917 ==
LOC: JER 12:07 → JERBED 15:25 → JICU 17:05 → J5S 06-25 15:17
PROVIDERS: ADMIT Internal Medicine Pulmonary Disease
PROC: 5A1945Z Respiratory Ventilation, 24-96 Consecutive Hours (ICD-10-PCS; principal; 2025-06-21)
PROC: 0BH17EZ Insertion of Endotracheal Airway into Trachea, Via Natural or Artificial Opening (ICD-10-PCS; 2025-06-21)
DX: T40.2X1A Poisoning by other opioids, accidental (unintentional), initial encounter (principal); G92.8 Other toxic encephalopathy; J96.02 Acute respiratory failure with hypercapnia; J69.0 Pneumonitis due to inhalation of food and vomit; J96.01 Acute respiratory failure with hypoxia; E87.20 Acidosis, unspecified; F11.20 Opioid dependence, uncomplicated; E87.0 Hyperosmolality and hypernatremia; J44.9 Chronic obstructive pulmonary disease, unspecified; Z99.81 Dependence on supplemental oxygen; N40.0 Benign prostatic hyperplasia without lower urinary tract symptoms; I16.0 Hypertensive urgency; Y92.89 Other specified places as the place of occurrence of the external cause; E86.0 Dehydration; E87.6 Hypokalemia; F12.90 Cannabis use, unspecified, uncomplicated
CPT/HCPCS: 36415; 36600; 70450-TC; 71045-TC-FY; 76604; 80053; 80307; 81003; 82550; 82803; 82962; 83605; 83735; 84100; 84484; 85025; 85027; 87040; 87086; 93308; 94002; 94010; 94640; 94660; 94761; 97116-GP; 97161-GP; 99291